=== PATIENT | female | born 1935 | race Caucasian/White ===

== ENCOUNTER 2016-08-28 21:08 | Emergency (ER) | payer OTHER ==
[~2016-08-28] VITALS: Ht 152.4 cm; Wt 66.5 kg
[~2016-08-28 21:08] MED LIST: ACET325T33 PO; ALBU8.5H3 INH; AMLO-218 PO; HYD25 PO; HYDR-3498 PO; MONT10TA21 PO; UDROBAC PO
[2016-08-28 21:25] VITALS: Ht 152.4 cm; Wt 66.5 kg
[2016-08-28] MEDS ORDERED: SODIUM CHLORIDE 0.9% 1L BAG IV* STA (21:47)
[2016-08-28] MEDS ORDERED: ACETAMINOPHEN 325 MG TAB PO STA (21:47)
[2016-08-28 23:01] LABS: ADD SCAN DIFF NO
[2016-08-28 23:04] LABS: BASOPHILS % 0.3 % (0.0-2.0); EOSINOPHILS # 0.2 10^3/ul (0.0-0.5); EOSINOPHILS % 1.9 % (0.0-7.0); HEMATOCRIT 42.1 % (37.0-47.0); HEMOGLOBIN 13.8 g/dl (12.0-16.0); LYMPHOCYTES # 1.9 10^3/ul (0.8-2.9); LYMPHOCYTES % 17.9 % (15.0-51.0); MEAN CORPUSCULAR HGB CONC 32.8 g/dl (32.0-37.0); MEAN CORPUSCULAR VOLUME 88.4 fl (82.0-101.0); MEAN PLATELET VOLUME 9.8 fl (7.4-10.4); MONOCYTE # 1.3 10^3/ul (0.3-0.9); MONOCYTES % 12.3 % (0.0-11.0); NEUTROPHIL # 7.1 10^3/ul (1.6-7.5); NEUTROPHILS % 67.3 % (39.0-77.0); PLATELET COUNT 313 10^3/UL (140-415); RED BLOOD COUNT 4.76 10^6/ul (4.20-5.40); RED CELL DISTRIBUTION WIDTH 13.2 % (11.5-14.5); WHITE BLOOD COUNT 10.5 10^3/ul (4.8-10.8)
[2016-08-28 23:08] LABS: ADD UMIC YES; URINE BILIRUBIN (Dip) NEGATIVE (NEGATIVE); URINE BLOOD (Dip) TRACE (NEGATIVE); URINE COLOR LT. YELLOW (YELLOW); URINE GLUCOSE (Dip) NEGATIVE (NEGATIVE); URINE KETONES (Dip) NEGATIVE (NEGATIVE); URINE LEUKOCYTE ESTERASE (Dip) 1+ (NEGATIVE); URINE NITRITE (Dip) POSITIVE (NEGATIVE); URINE TOTAL PROTEIN (Dip) NEGATIVE (NEGATIVE); URINE UROBILINOGEN (Dip) 0.2 E.U./dL (0.1-1.0)
[2016-08-28 23:13] LABS: INR 1.04; PROTIME 13.6 Sec (12.2-14.2); PT RATIO 1.1
[2016-08-28 23:14] LABS: PARTIAL THROMBOPLASTIN TIME 29.9 Sec (25.0-35.0)
--- NOTE | 2016-08-28 23:15 | RADRPT ---
PROCEDURE: XR Chest. CLINICAL INDICATION: Possible sepsis. TECHNIQUE: Single frontal view of the chest was obtained COMPARISON: Chest dated 01/01/2016. FINDINGS: Cardiomegaly and tortuous thoracic aorta. Left lung base atelectasis versus airspace disease. The right lung remains clear. Small left pleural effusion is likely present There is no pneumothorax. IMPRESSION: 1. Left lung base atelectasis versus airspace disease, with small left pleural effusion. 2. Findings suggest left lung base pneumonia. RPTAT: [facility] Physician Stevenson Date Time Electronically viewed and signed by Physician Stevenson on 08/28/2016 23:15 RS/
[2016-08-28 23:23] LABS: ALBUMIN 4.5 g/dl (3.3-4.9); BACTERIA,URINE MANY; CHLORIDE 96 mmol/L (97-110); SODIUM 136 mmol/L (135-144); SQUAMOUS EPITHELIAL CELL,UR FEW; URINE RBCS 0-2 /HPF (0)
[2016-08-28 23:24] LABS: POTASSIUM 3.2 mmol/L (3.5-5.1)
[2016-08-28 23:26] LABS: ALANINE AMINOTRANSFERASE 28 IU/L (13-69); ALBUMIN/GLOBULIN RATIO 1.15; ALKALINE PHOSPHATASE 111 IU/L (42-121); ANION GAP 13 (8-16); ASPARTATE AMINO TRANSFERASE 24 IU/L (15-46); BILIRUBIN,INDIRECT 0.7 mg/dl (0-1.1); BILIRUBIN,TOTAL 0.7 mg/dl (0.2-1.3); BLOOD UREA NITROGEN 11 mg/dl (7-20); CARBON DIOXIDE 30 mmol/L (21-31); CREATININE 0.68 mg/dl (0.44-1.00); GLUCOSE 115 mg/dl (70-220); TOTAL PROTEIN 8.4 g/dl (6.1-8.1)
[2016-08-28 23:27] LABS: CALCIUM 9.3 mg/dl (8.4-10.2)
[2016-08-28 23:56] LABS: TROPONIN-I < 0.012 ng/ml (0.00-0.12)
[2016-08-29] MEDS ORDERED: CEFTRIAXONE 1 GM/50 ML (PMX) 50 ML IVPB ONE (00:30)
[2016-08-29 00:54] VITALS: BP 118/67; PULSE 77; RESP 20; TEMP 98
[2016-08-29] MEDS ORDERED: CIPR500T4 PO (01:00)
--- NOTE | 2016-08-29 01:02 | ERD ---
ER Documentation Chief Complaint Date/Time DATE: 08/29/16 TIME: 01:02 Chief Complaint cough w/ fever x 3 days HPI This is a very pleasant 80-year-old female comes in with cough and fever for 3 days. Patient denies any nausea vomiting. Denies any chills. Denies any other current issues. Patient has been a little bit febrile at home. Denies any dysuria. Denies any current problems. ROS All systems reviewed and are negative except as per history of present illness. Medications Home Meds Active Scripts Ciprofloxacin Hcl* (Ciprofloxacin Hcl*) 500 Mg Tablet, 500 MG PO BID for 7 Days , TAB Prov:LEXIS SANDERSON 08/29/16 Acetaminophen* (Tylenol*) 325 Mg Tablet, 650 MG PO Q6H Y for PAIN LEVEL 1-3 OR FEVER, #30 TAB Prov:LEXIS MOORE MD 01/02/16 Amlodipine Besylate* (Norvasc*) 10 Mg Tablet, 10 MG PO DAILY, #30 TAB Prov:LEXIS MOORE MD 01/02/16 Hydrocodone Bit-Acetaminophen* ([place]*) 5-325 Mg Tab, 1 TAB PO Q6 Y for PAIN, # 20 TAB Prov:ELENA HUMPHREY 04/01/15 Guaifenesin-Codeine Phosphate* (Robitussin* AC) 5 Ml Syrup, 5 ML PO Q6H Y for COUGH for 7 Days, ML Prov:MILTON COTTO NP 10/17/14 Montelukast Sodium* (Singulair*) 10 Mg Tab, 10 MG PO HS for 30 Days Prov:MILTON COTTO NP 07/22/14 Albuterol Sulfate* (Proair HFA*) 8.5 Gm Hfa.aer.ad, 2 PUFF INH Q6 for 30 Days, INH Prov:MILTON COTTO NP 07/11/14 Reported Medications Hydrochlorothiazide* (Hydrochlorothiazide*) 25 Mg Tab, 25 MG PO DAILY, TAB 07/09/14 Allergies Allergies: Coded Allergies: aspirin (Verified Allergy, Unknown, 07/19/14) PMhx/Soc History of Surgery: Yes (C SECTION AND HYSTERECTOMY.) Anesthesia Reaction: No Hx Neurological Disorder: No Hx Respiratory Disorders: Yes (ASTHMA.) Hx Cardiac Disorders: No Hx Psychiatric Problems: No Hx Miscellaneous Medical Probl: Yes (asthma, HTN, wrist fx from fall) Hx Alcohol Use: No Hx Substance Use: No Hx Tobacco Use: No Smoking Status: Never smoker Physical Exam Vitals Vital Signs Date Time Temp Pulse Resp B/P Pulse Ox O2 Delivery O2 Flow Rate FiO2 08/29/16 00:54 98.0 77 20 118/67 96 Nasal Cannula 2.0 08/28/16 23:12 98.0 72 20 134/69 98 Nasal Cannula 2.0 08/28/16 22:03 Nasal Cannula 08/28/16 21:25 100.4 97 20 137/66 94 Physical Exam Const: [] Head: Atraumatic Eyes: Normal Conjunctiva ENT: Normal External Ears, Nose and Mouth. Neck: Full range of motion..~ No meningismus. Resp: Clear to auscultation bilaterally Cardio: Regular rate and rhythm, no murmurs Abd: Soft, non tender, non distended. Normal bowel sounds Skin: No petechiae or rashes Back: No midline or flank tenderness Ext: No cyanosis, or edema Neur: Awake and alert Psych: Normal Mood and Affect Result Diagram: 08/28/16219908/28/162199 Results 24 hrs Laboratory Tests Test 08/28/16 22:00 White Blood Count 10.510^3/ul Red Blood Count 4.7610^6/ul Hemoglobin 13.8g/dl Hematocrit 42.1% Mean Corpuscular Volume 88.4fl Mean Corpuscular Hemoglobin 29.0pg Mean Corpuscular Hemoglobin Concent 32.8g/dl Red Cell Distribution Width 13.2% Platelet Count 58974^3/UL Mean Platelet Volume 9.8fl Neutrophils % 67.3% Lymphocytes % 17.9% Monocytes % 12.3% Eosinophils % 1.9% Basophils % 0.3% Nucleated Red Blood Cells % 0.0/100WBC Neutrophils # 7.110^3/ul Lymphocytes # 1.910^3/ul Monocytes # 1.310^3/ul Eosinophils # 0.210^3/ul Basophils # 0.010^3/ul Nucleated Red Blood Cells # 0.010^3/ul Prothrombin Time 13.6Sec Prothrombin Time Ratio 1.1 INR International Normalized Ratio 1.04 Activated Partial Thromboplast Time 29.9Sec Urine Color LT. YELLOW Urine Clarity CLOUDY Urine pH 5.5 Urine Specific [place] <=1.005 Urine Ketones NEGATIVE Urine Nitrite POSITIVE Urine Bilirubin NEGATIVE Urine Urobilinogen 0.2 E.U./dL Urine Leukocyte Esterase 1+ Urine Microscopic RBC 0-2/HPF Urine Microscopic WBC 10-25/HPF Urine Squamous Epithelial Cells FEW Urine Bacteria MANY Urine Hemoglobin TRACE Urine Glucose NEGATIVE% Urine Total Protein NEGATIVE Sodium Level 136mmol/L Potassium Level 3.2mmol/L Chloride Level 96mmol/L Carbon Dioxide Level 30mmol/L Anion Gap 13 Blood Urea Nitrogen 11mg/dl Creatinine 0.68mg/dl Glucose Level 115mg/dl Lactic Acid Level 1.1mmol/L Calcium Level 9.3mg/dl Total Bilirubin 0.7mg/dl Direct Bilirubin 0.00mg/dl Indirect Bilirubin 0.7mg/dl Aspartate Amino Transf (AST/SGOT) 24IU/L Alanine Aminotransferase (ALT/SGPT) 28IU/L Alkaline Phosphatase 111IU/L Troponin I < 0.012ng/ml Total Protein 8.4g/dl Albumin 4.5g/dl Globulin 3.90g/dl Albumin/Globulin Ratio 1.15 Current Medications Medications (Trade) Dose Ordered Sig/Rosy Route PRN Reason Start Time Stop Time Status Last Admin Dose Admin Sodium Chloride (NS) 2,060 ml BOLUS OVER 2 HOURS STAT IV* 08/28/16 21:47 08/28/16 21:49 DC 08/28/16 22:41 Acetaminophen 650 mg 650 mg ONCE STAT PO 08/28/16 21:47 08/28/16 21:49 DC 08/28/16 22:41 Ceftriaxone Sodium (Rocephin) 50 ml @ 100 mls/hr ONCE ONCE IVPB 08/29/16 00:30 08/29/16 00:59 DC 08/29/16 00:35 Procedures/MDM EKG: Rate/Rhythm: Normal Sinus Rhythm QRS, ST, T-waves: No changes consistent w/ acute ischemia Impression: No evidence of ischemia or arrhythmia Chest X-ray 1V Interpreted by me: Soft Tissue: No acute abnormalities Bones: No acute abnormalities Mediastinum/Cardiac Silhouette/Lungs: [No acute abnormalities] Departure Diagnosis: Primary Impression: Fever Condition: Stable Patient Instructions: Urinary Tract Infections in Women LEXIS SANDERSON Aug 29, 2016 01:02
[2016-08-29] MEDS ORDERED: ALBU18HF INHALATION (01:03)
[2016-08-29] MEDS ORDERED: AZIT250T94 PO (01:03)
[2016-08-29] MEDS ORDERED: BENZONATATE 100 MG CAP PO ONE (01:30)
[2016-08-30] MEDS ORDERED: BENA40TA41 PO (18:06)
[2016-08-30] MEDS ORDERED: METO-448 PO (18:07)
[2016-08-30] MEDS ORDERED: DOCU100C26 PO (18:07)
[2016-08-30] MEDS ORDERED: AZIT250T6 PO (18:08)
== END 2016-08-29 01:31 | disposition home or self-care (01) ==
LOC: E/R 21:08
DX: R50.9 Fever, unspecified (principal); I10 Essential (primary) hypertension; J45.909 Unspecified asthma, uncomplicated
CPT/HCPCS: 36415; 71010; 80053; 81001; 81003; 83605; 84484; 85025; 85610; 85730; 87040; 87086; 93005; 96374; J0696; J7030; Z7502; Z7610

== ENCOUNTER 2016-08-30 15:05 | Inpatient (IN) | payer OTHER ==
[~2016-08-30] VITALS: Ht 157.5 cm; Wt 65.4 kg
[~2016-08-30 15:05] MED LIST changes: +ALBU18HF INHALATION; +AZIT250T94 PO; +CIPR500T4 PO
[2016-08-30] MEDS ORDERED: ALBUTEROL 0.5% (NEB) 2.5 MG/0.5 ML AMP INH STA (17:45)
[2016-08-30] MEDS ORDERED: SOD CHLORIDE 0.9% 500 ML IV STA (17:45)
[2016-08-30] MEDS ORDERED: METHYLPREDNISOLONE 125 MG INJ IV STA (17:45)
[2016-08-30] MEDS ORDERED: BENA40TA41 PO (18:06)
[2016-08-30] MEDS ORDERED: METO-448 PO (18:07)
[2016-08-30] MEDS ORDERED: DOCU100C26 PO (18:07)
[2016-08-30] MEDS ORDERED: AZIT250T6 PO (18:08)
--- NOTE | 2016-08-30 18:54 | RADRPT ---
PROCEDURE: XR Chest. CLINICAL INDICATION: Abdominal Pain TECHNIQUE: Portable single view of the chest COMPARISON: 08/28/2016 FINDINGS: The heart size remains within normal limits. The aorta is ectatic and tortuous, unchanged. Increas ed interstitial markings particularly at the lung bases again seen but no definite acute infiltrate, pleural effusion, or overt congestive heart failure. Mild degenerative change of the shoulders. IMPRESSION: No significant interval change. Slightly increased bibasilar interstitial markings. RPTAT: [facility] Opal Zavala, Physician Date Time Electronically viewed and signed by Opal Zavala, Physician on 08/30/2016 18:54 LE/
[2016-08-30 19:38] LABS: ADD SCAN DIFF NO
[2016-08-30 19:41] LABS: BASOPHILS % 0.3 % (0.0-2.0); EOSINOPHILS # 0.1 10^3/ul (0.0-0.5); EOSINOPHILS % 1.6 % (0.0-7.0); HEMATOCRIT 36.7 % (37.0-47.0); HEMOGLOBIN 12.4 g/dl (12.0-16.0); MEAN CORPUSCULAR HEMOGLOBIN 29.7 pg (29.0-33.0); MEAN CORPUSCULAR HGB CONC 33.8 g/dl (32.0-37.0); MEAN CORPUSCULAR VOLUME 87.8 fl (82.0-101.0); MEAN PLATELET VOLUME 9.1 fl (7.4-10.4); MONOCYTE # 0.6 10^3/ul (0.3-0.9); MONOCYTES % 8.2 % (0.0-11.0); NEUTROPHIL # 5.7 10^3/ul (1.6-7.5); NEUTROPHILS % 76.4 % (39.0-77.0); PLATELET COUNT 288 10^3/UL (140-415); RED BLOOD COUNT 4.18 10^6/ul (4.20-5.40); WHITE BLOOD COUNT 7.5 10^3/ul (4.8-10.8)
[2016-08-30 19:58] LABS: ALBUMIN 4.1 g/dl (3.3-4.9)
[2016-08-30 19:59] LABS: CHLORIDE 100 mmol/L (97-110); POTASSIUM 3.3 mmol/L (3.5-5.1); SODIUM 139 mmol/L (135-144)
[2016-08-30 20:01] LABS: ANION GAP 13 (8-16); ASPARTATE AMINO TRANSFERASE 30 IU/L (15-46); BILIRUBIN,INDIRECT 0.4 mg/dl (0-1.1); BILIRUBIN,TOTAL 0.4 mg/dl (0.2-1.3); CARBON DIOXIDE 29 mmol/L (21-31)
[2016-08-30 20:02] LABS: ALANINE AMINOTRANSFERASE 32 IU/L (13-69); ALKALINE PHOSPHATASE 103 IU/L (42-121); BLOOD UREA NITROGEN 13 mg/dl (7-20); GLUCOSE 129 mg/dl (70-220); TOTAL PROTEIN 7.5 g/dl (6.1-8.1)
[2016-08-30 20:14] LABS: TROPONIN-I < 0.010 ng/ml (0.00-0.12)
--- NOTE | 2016-08-30 20:26 | ERA ---
ER Documentation Chief Complaint Date/Time DATE: 08/30/16 TIME: 20:21 Chief Complaint HERE ON 08/28, SAME COUGH,BODY ACHES. SOB HPI 80-year-old woman brought in by family member for continued cough and shortness of breath. She does have a history of asthma and hypertension and states she has been coughing for the last 3 or 4 days. She was seen and evaluated last night a chest x-ray was unremarkable and she was treated with ceftriaxone for possible bronchitis and discharged with a prescription for ciprofloxacin which she states she has been using without relief. She denies calf or leg swelling, no chest pain, no vomiting or diarrhea, no headache or blurry vision, no complaints of dysuria, no recent travel or sick contacts. ROS All systems reviewed and are negative except as per history of present illness. Medications Home Meds Active Scripts Albuterol Sulfate* (Ventolin HFA*) 18 Gm Hfa.aer.ad, 2 PUFF INHALATION Q4H, #1 INHALER Prov:LEXIS SANDERSON 08/29/16 Ciprofloxacin Hcl* (Ciprofloxacin Hcl*) 500 Mg Tablet, 500 MG PO BID for 7 Days , TAB Prov:LEXIS SANDERSON 08/29/16 Amlodipine Besylate* (Norvasc*) 10 Mg Tablet, 10 MG PO DAILY, #30 TAB Prov:LEXIS MOORE MD 01/02/16 Montelukast Sodium* (Singulair*) 10 Mg Tab, 10 MG PO HS for 30 Days Prov:MILTON COTTO NP 07/22/14 Reported Medications Azithromycin* (Azithromycin*) 250 Mg Tablet, 250 MG PO QAM, #4 TAB 08/30/16 Docusate Sodium* (Doc-Q-Lace*) 100 Mg Capsule, 100 MG PO BID Y for CONSTIPATION , CAP 08/30/16 Metoprolol Tartrate* (Lopressor*) 25 Mg Tab, 25 MG PO BID, #60 TAB 08/30/16 Benazepril Hcl* (Benazepril Hcl*) 40 Mg Tablet, 40 MG PO DAILY, #30 TAB 08/30/16 Hydrochlorothiazide* (Hydrochlorothiazide*) 25 Mg Tab, 25 MG PO DAILY, TAB 07/09/14 Discontinued Scripts Azithromycin* (Zithromax*) 250 Mg Tablet, 250 MG PO .IRE[place] DIRECTED, #6 TAB TAKE 500 MG (2 TABS) THE FIRST DAY THEN 250 MG (1 TAB) DAYS 2-5 Prov:LEXIS SANDERSON 08/29/16 Acetaminophen* (Tylenol*) 325 Mg Tablet, 650 MG PO Q6H Y for PAIN LEVEL 1-3 OR FEVER, #30 TAB Prov:LEXIS MOORE MD 01/02/16 Hydrocodone Bit-Acetaminophen* ([place]*) 5-325 Mg Tab, 1 TAB PO Q6 Y for PAIN, # 20 TAB Prov:ELENA HUMPHREY 04/01/15 Guaifenesin-Codeine Phosphate* (Robitussin* AC) 5 Ml Syrup, 5 ML PO Q6H Y for COUGH for 7 Days, ML Prov:MILTON COTTO NP 10/17/14 Albuterol Sulfate* (Proair HFA*) 8.5 Gm Hfa.aer.ad, 2 PUFF INH Q6 for 30 Days, INH Prov:MILTON COTTO DECONTAMINATOR 07/11/14 Allergies Allergies: Coded Allergies: aspirin (Verified Allergy, Unknown, 08/30/16) PMhx/Soc Asthma, hypertension History of Surgery: Yes (C SECTION AND HYSTERECTOMY.) Anesthesia Reaction: No Hx Neurological Disorder: No Hx Respiratory Disorders: Yes (ASTHMA.) Hx Cardiac Disorders: No Hx Psychiatric Problems: No Hx Miscellaneous Medical Probl: Yes (asthma, HTN, wrist fx from fall) Hx Alcohol Use: No Hx Substance Use: No Hx Tobacco Use: No Smoking Status: Never smoker FmHx Family History: No diabetes Physical Exam Vitals Vital Signs Date Time Temp Pulse Resp B/P Pulse Ox O2 Delivery O2 Flow Rate FiO2 08/30/16 19:56 2.0 08/30/16 19:55 78 22 97 Nasal Cannula 2.0 08/30/16 15:06 98.7 89 18 115/59 91 Physical Exam GENERAL: Well-developed, well-nourished, dyspneic, afebrile HEENT: Moist mucous membranes, pink conjunctiva, no cervical spine tenderness or step-off deformities, no goiter, no jaundice or icterus, extraocular movements intact without pain. No submandibular induration, and no pharyngeal erythema NEURO: Alert and oriented 3, cranial nerves II through XII intact bilaterally, pupils equal round reactive to light, no focal deficits or facial asymmetry, sensation intact distally Strength 5/5 in upper and lower extremities bilaterally CARDIAC: Regular rate and rhythm, no murmurs rubs or gallops LUNGS: Dense wheezes bilaterally, no stridor or crackles ABDOMEN: Soft nontender, no guarding, no rigidity, no rebound, no psoas sign no obturator sign. Normoactive bowel sounds SKIN: Warm and dry to touch, no abrasions, contusions, or hematomas, no lacerations, no ecchymosis, no target lesions, and without ulcers EXTREMITIES: No clubbing cyanosis or edema, calves are bilaterally symmetrical, no Homans sign, no popliteal cord sign. Distal pulses equal and bilateral PSYCH: Normal affect without agitation or irritability Result Diagram: 08/30/16192408/30/161924 Results 24 hrs Laboratory Tests Test 08/30/16 19:25 White Blood Count 7.510^3/ul Red Blood Count 4.1810^6/ul Hemoglobin 12.4g/dl Hematocrit 36.7% Mean Corpuscular Volume 87.8fl Mean Corpuscular Hemoglobin 29.7pg Mean Corpuscular Hemoglobin Concent 33.8g/dl Red Cell Distribution Width 13.0% Platelet Count 92153^3/UL Mean Platelet Volume 9.1fl Neutrophils % 76.4% Lymphocytes % 13.0% Monocytes % 8.2% Eosinophils % 1.6% Basophils % 0.3% Nucleated Red Blood Cells % 0.0/100WBC Neutrophils # 5.710^3/ul Lymphocytes # 1.010^3/ul Monocytes # 0.610^3/ul Eosinophils # 0.110^3/ul Basophils # 0.010^3/ul Nucleated Red Blood Cells # 0.010^3/ul Sodium Level 139mmol/L Potassium Level 3.3mmol/L Chloride Level 100mmol/L Carbon Dioxide Level 29mmol/L Anion Gap 13 Blood Urea Nitrogen 13mg/dl Creatinine 0.70mg/dl Glucose Level 129mg/dl Calcium Level 9.0mg/dl Total Bilirubin 0.4mg/dl Direct Bilirubin 0.00mg/dl Indirect Bilirubin 0.4mg/dl Aspartate Amino Transf (AST/SGOT) 30IU/L Alanine Aminotransferase (ALT/SGPT) 32IU/L Alkaline Phosphatase 103IU/L Troponin I < 0.010ng/ml Total Protein 7.5g/dl Albumin 4.1g/dl Globulin 3.40g/dl Albumin/Globulin Ratio 1.20 Lipase 66U/L Current Medications Medications (Trade) Dose Ordered Sig/Rosy Route PRN Reason Start Time Stop Time Status Last Admin Dose Admin Sodium Chloride (NS) 500 ml @ 500 mls/hr Q1H STAT IV 08/30/16 17:45 08/30/16 18:44 DC 08/30/16 18:11 Albuterol (Proventil 0.5% (Neb)) 10 mg ONCE STAT INH 08/30/16 17:45 08/30/16 17:47 DC 08/30/16 19:55 Methylprednisolone Sodium Succinate (Solu-Medrol) 125 mg ONCE STAT IV 08/30/16 17:45 08/30/16 17:47 DC 08/30/16 18:10 Procedures/MDM IV line was established patient was placed on surveillance monitor rhythm strip revealed a sinus rhythm at about 80 bpm with upright P and T waves. Patient was afebrile. I administered 500 cc normal saline intravenously, albuterol 10 mg via nebulizer , ipratropium 1 mg via nebulizer, methylprednisolone 125 mg IV. CBC was unremarkable, electrolytes revealed mild hypokalemia 3.3 consistent with her albuterol treatment, liver function tests are normal, troponin was negative. Urine analysis is also been ordered results are pending I will follow -up. Despite over an hour of albuterol treatment patient has continued dense wheezing and tachypnea, I do not suspect pulmonary embolism. Patient will be admitted to [facility] for continued bronchodilator therapy secondary to severe asthma exacerbation. Departure Diagnosis: Primary Impression: Asthma exacerbation Condition: MARIBEL Shields MD Aug 30, 2016 20:26
[2016-08-30 21:49] LABS: ADD UMIC YES; URINE BILIRUBIN (Dip) NEGATIVE (NEGATIVE); URINE BLOOD (Dip) TRACE (NEGATIVE); URINE COLOR LT. YELLOW (YELLOW); URINE GLUCOSE (Dip) NEGATIVE (NEGATIVE); URINE KETONES (Dip) TRACE (NEGATIVE); URINE LEUKOCYTE ESTERASE (Dip) NEGATIVE (NEGATIVE); URINE NITRITE (Dip) NEGATIVE (NEGATIVE); URINE TOTAL PROTEIN (Dip) NEGATIVE (NEGATIVE); URINE UROBILINOGEN (Dip) 0.2 E.U./dL (0.1-1.0)
[2016-08-30 22:02] LABS: BACTERIA,URINE RARE; SQUAMOUS EPITHELIAL CELL,UR FEW; URINE RBCS 0-2 /HPF (0)
--- NOTE | 2016-08-30 22:08 | HP ---
Date/Time of Note Date/Time of Note DATE: 08/30/16 TIME: 22:07 Assessment/Plan VTE Prophylaxis VTE Prophylaxis Intervention: anti-embolic stocking Assessment/Plan Assessment/Plan 1) Asthma Exacerbation - Admit to Med Surg - DuoNeb QID and Albuterol neb Q 2 hours prn - ABX to prevent pneumonia, not to treat anything patient has right now. 2) History of recurrent pneumonia HPI/ROS Admit Date/Time Admit Date/Time Aug 30, 2016 at 20:21 Hx of Present Illness Patient is a 80-year-old [place]ian-speaking woman accompanied by her daughter. Patient complains of cough and shortness of breath and wheezing. She coughs so much it is it hurts her lower abdomen when she does and it makes her urinate. She has had no fevers or chills. No nausea or vomiting. She has asthma and a history of pneumonia 2 or 3 times. She is hard of hearing. She was seen yesterday for the same symptoms and she was given antibiotics but no breathing treatment. Tonight, the patient has received multiple breathing treatments and has improved both objectively and subjectively. ROS General: Admits: Denies: Fever, Chills, Poor Appetite, Generalized Body Aches Eyes: Admits: Denies: Blurry Vision, Double Vision HENT: Admits: Hard of hearing Denies: Ear Pain/Pressure, Runny/Stuffy Nose, Sore Throat Cardiovascular: Admits: Denies: Chest Pain, Palpitations, Leg Swelling Pulmonary: Admits: Cough, Wheeze, Shortness of Breath Denies: Gastrointestinal: Admits: Abdominal Pain, lower, with coughs Denies: Nausea, Vomiting, Diarrhea, Blood in Stool, Black-Colored Stool Urogenital: Admits: Incontinence with coughing Denies: Burning with Urination, Urinary Frequency, Blood in Urine Musculoskeletal: Admits: Denies: Joint Pain, Joint Swelling, Muscle Pain Neurological: Admits: Denies: Headache, Dizziness, Numbness, Tingling, Shooting Pains Integumentary: Admits: Denies: Rash, Itch PMH/Family/Social Social History Smoking Status: Never smoker Exam/Review of Systems Vital Signs Vitals Vital Signs Date Time Temp Pulse Resp B/P Pulse Ox O2 Delivery O2 Flow Rate FiO2 08/30/16 21:44 97 113/70 98 Nasal Cannula 5.0 08/30/16 19:55 22 08/30/16 15:06 98.7 Exam Exam General: Elderly [place]ian-Speaking female who is hard of hearing, but alert and pleasant, in no acute distress Eyes: Sclera White, EOMI HENT: Normocephalic/Atraumatic, External Ears/Nose Normal, Moist Mucus Membranes Neck: Supple, Trachea Midline Cardiovascular: Normal Rate, Normal Rhythm, Normal S1 and S2, No Murmur, No Extra Sounds. Radial pulses +2/4. No pedal edema. Pulmonary: Decreased airflow throughout, but no rales, rhonchi or wheezes Gastrointestinal: Normoactive Bowel Sounds, Soft, Non-Tender/Non-Distended, No Hepatosplenomegaly Appreciated, No Pulsatile Masses Urogenital: Deferred Musculoskeletal: Normal Muscle Bulk and Tone Neurological: CN II - XII Grossly Intact, Non-Focal Integumentary: Normal Moisture and Temperature, Good Turgor, No Jaundice, No Rash Lymphatic: No Cervical Lymphadenopathy Psychiatric: Appropriate Mood and Affect, Good Eye Contact Labs Result Diagram: 08/30/16192408/30/161924 Medications Medications Home Meds Active Scripts Albuterol Sulfate* (Ventolin HFA*) 18 Gm Hfa.aer.ad, 2 PUFF INHALATION Q4H, #1 INHALER Prov:LEXIS SANDERSON 08/29/16 Ciprofloxacin Hcl* (Ciprofloxacin Hcl*) 500 Mg Tablet, 500 MG PO BID for 7 Days , TAB Prov:LEXIS SANDERSON 08/29/16 Amlodipine Besylate* (Norvasc*) 10 Mg Tablet, 10 MG PO DAILY, #30 TAB Prov:LEXIS MOORE MD 01/02/16 Montelukast Sodium* (Singulair*) 10 Mg Tab, 10 MG PO HS for 30 Days Prov:MILTON COTTO NP 07/22/14 Reported Medications Azithromycin* (Azithromycin*) 250 Mg Tablet, 250 MG PO QAM, #4 TAB 08/30/16 Docusate Sodium* (Doc-Q-Lace*) 100 Mg Capsule, 100 MG PO BID Y for CONSTIPATION , CAP 08/30/16 Metoprolol Tartrate* (Lopressor*) 25 Mg Tab, 25 MG PO BID, #60 TAB 08/30/16 Benazepril Hcl* (Benazepril Hcl*) 40 Mg Tablet, 40 MG PO DAILY, #30 TAB 08/30/16 Hydrochlorothiazide* (Hydrochlorothiazide*) 25 Mg Tab, 25 MG PO DAILY, TAB 07/09/14 Discontinued Scripts Azithromycin* (Zithromax*) 250 Mg Tablet, 250 MG PO .[place] DIRECTED, #6 TAB TAKE 500 MG (2 TABS) THE FIRST DAY THEN 250 MG (1 TAB) DAYS 2-5 Prov:LEXIS SANDERSON 08/29/16 Acetaminophen* (Tylenol*) 325 Mg Tablet, 650 MG PO Q6H Y for PAIN LEVEL 1-3 OR FEVER, #30 TAB Prov:LEXIS MOORE MD 01/02/16 Hydrocodone Bit-Acetaminophen* ([place]*) 5-325 Mg Tab, 1 TAB PO Q6 Y for PAIN, # 20 TAB Prov:ELENA HUMPHREY 04/01/15 Guaifenesin-Codeine Phosphate* (Robitussin* AC) 5 Ml Syrup, 5 ML PO Q6H Y for COUGH for 7 Days, ML Prov:MILTON COTTO NP 10/17/14 Albuterol Sulfate* (Proair HFA*) 8.5 Gm Hfa.aer.ad, 2 PUFF INH Q6 for 30 Days, INH Prov:MILTON COTTO COMMERCIAL TITLE EXAMINER 07/11/14 Current Medications Medications (Trade) Dose Ordered Sig/Rosy Route PRN Reason Start Time Stop Time Status Last Admin Dose Admin Sodium Chloride (NS) 500 ml @ 500 mls/hr Q1H STAT IV 08/30/16 17:45 08/30/16 18:44 DC 08/30/16 18:11 Albuterol (Proventil 0.5% (Neb)) 10 mg ONCE STAT INH 08/30/16 17:45 08/30/16 17:47 DC 08/30/16 19:55 Methylprednisolone Sodium Succinate (Solu-Medrol) 125 mg ONCE STAT IV 08/30/16 17:45 08/30/16 17:47 DC 08/30/16 18:10 Procedures Procedures Laboratory Tests Test 08/30/16 19:25 White Blood Count 7.510^3/ul Red Blood Count 4.1810^6/ul Hemoglobin 12.4g/dl Hematocrit 36.7% Mean Corpuscular Volume 87.8fl Mean Corpuscular Hemoglobin 29.7pg Mean Corpuscular Hemoglobin Concent 33.8g/dl Red Cell Distribution Width 13.0% Platelet Count 79050^3/UL Mean Platelet Volume 9.1fl Neutrophils % 76.4% Lymphocytes % 13.0% Monocytes % 8.2% Eosinophils % 1.6% Basophils % 0.3% Nucleated Red Blood Cells % 0.0/100WBC Neutrophils # 5.710^3/ul Lymphocytes # 1.010^3/ul Monocytes # 0.610^3/ul Eosinophils # 0.110^3/ul Basophils # 0.010^3/ul Nucleated Red Blood Cells # 0.010^3/ul Sodium Level 139mmol/L Potassium Level 3.3mmol/L Chloride Level 100mmol/L Carbon Dioxide Level 29mmol/L Anion Gap 13 Blood Urea Nitrogen 13mg/dl Creatinine 0.70mg/dl Glucose Level 129mg/dl Calcium Level 9.0mg/dl Total Bilirubin 0.4mg/dl Direct Bilirubin 0.00mg/dl Indirect Bilirubin 0.4mg/dl Aspartate Amino Transf (AST/SGOT) 30IU/L Alanine Aminotransferase (ALT/SGPT) 32IU/L Alkaline Phosphatase 103IU/L Troponin I < 0.010ng/ml Total Protein 7.5g/dl Albumin 4.1g/dl Globulin 3.40g/dl Albumin/Globulin Ratio 1.20 Lipase 66U/L Procedures/MDM in the ER IV line was established patient was placed on engineer soils rhythm strip revealed a sinus rhythm at about 80 bpm with upright P and T waves. Patient was afebrile. I administered 500 cc normal saline intravenously, albuterol 10 mg via nebulizer , ipratropium 1 mg via nebulizer, methylprednisolone 125 mg IV. CBC was unremarkable, electrolytes revealed mild hypokalemia 3.3 consistent with her albuterol treatment, liver function tests are normal, troponin was negative. Urine analysis is also been ordered results are pending I will follow -up. Despite over an hour of albuterol treatment patient has continued dense wheezing and tachypnea, I do not suspect pulmonary embolism. Patient will be admitted to [facility] for continued bronchodilator therapy secondary to severe asthma exacerbation. ARNAV PAYTON DO Aug 30, 2016 22:08
[2016-08-30] MEDS ORDERED: HYDROCODONE/APAP (5/325) TAB PO PRN ×2 (22:30)
[2016-08-30] MEDS ORDERED: NACL 0.9% 3 ML SYG IV SCH (22:30)
[2016-08-30] MEDS ORDERED: ALBUTEROL 0.083% (NEB) 2.5 MG/3 ML AMP NEB PRN (22:30)
[2016-08-30] MEDS ORDERED: DOCUSATE SODIUM 100 MG CAP PO PRN (22:30)
[2016-08-30] MEDS ORDERED: ACETAMINOPHEN 325 MG TAB PO PRN (22:30)
[2016-08-30 22:36] VITALS: Ht 157.5 cm; Wt 65.4 kg
[2016-08-30 22:53] VITALS: BP 123/62
[2016-08-30] MEDS: METOPROLOL 25 MG TAB PO SCH (23:45)
[2016-08-31 05:19] LABS: ADD SCAN DIFF NO
[2016-08-31 05:24] LABS: ABNORMAL IP MESSAGE 1; BASOPHILS % 0.1 % (0.0-2.0); HEMATOCRIT 37.5 % (37.0-47.0); HEMOGLOBIN 12.4 g/dl (12.0-16.0); LYMPHOCYTES # 0.6 10^3/ul (0.8-2.9); LYMPHOCYTES % 8.7 % (15.0-51.0); MEAN CORPUSCULAR HEMOGLOBIN 29.2 pg (29.0-33.0); MEAN CORPUSCULAR HGB CONC 33.1 g/dl (32.0-37.0); MEAN CORPUSCULAR VOLUME 88.4 fl (82.0-101.0); MEAN PLATELET VOLUME 9.1 fl (7.4-10.4); MONOCYTE # 0.1 10^3/ul (0.3-0.9); MONOCYTES % 0.9 % (0.0-11.0); NEUTROPHIL # 6.1 10^3/ul (1.6-7.5); NEUTROPHILS % 89.7 % (39.0-77.0); PLATELET COUNT 298 10^3/UL (140-415); RED BLOOD COUNT 4.24 10^6/ul (4.20-5.40); WHITE BLOOD COUNT 6.8 10^3/ul (4.8-10.8)
[2016-08-31 06:05] LABS: POTASSIUM 3.2 mmol/L (3.5-5.1)
[2016-08-31 06:07] LABS: CREATININE 0.66 mg/dl (0.44-1.00)
[2016-08-31 06:08] LABS: CALCIUM 9.1 mg/dl (8.4-10.2)
[2016-08-31 08:11] VITALS: BP 127/74; RESP 20
[2016-08-31] MEDS: METOPROLOL 25 MG TAB PO SCH ×2 (08:15→20:37)
[2016-08-31] MEDS: AMLODIPINE 10 MG TAB PO SCH (08:15)
[2016-08-31] MEDS: HYDROCHLOROTHIAZIDE 25 MG TAB PO SCH (08:15)
[2016-08-31] MEDS: AZITHROMYCIN 250 MG TAB PO SCH (08:15)
[2016-08-31] MEDS: BENAZEPRIL 40 MG TAB PO SCH (08:15)
[2016-08-31] MEDS: FAMOTIDINE 20 MG TAB PO SCH (08:15)
[2016-08-31] MEDS: ALBUTEROL/IPRATROPIUM (NEB) 3 ML AMP HHN SCH ×4 (08:19→20:42)
[2016-08-31] MEDS ORDERED: POTASSIUM CHLORIDE (SR) 20 MEQ TAB PO STA (14:45)
--- NOTE | 2016-08-31 16:29 | PN ---
Date/Time of Note Date/Time of Note DATE: 08/31/16 TIME: 16:24 Assessment/Plan VTE Prophylaxis VTE Prophylaxis Intervention: heparin Lines/Catheters IV [facility]ter Type [facility]from [facility]): Saline Lock Urinary Cath still in place: No Assessment/Plan Assessment/Plan 1. COPD exacerbation, neb/steroid, antibiotics 2. Hypertension, controlled 3. DVT prophylaxis: heparin Exam/Review of Systems Vital Signs Vitals Vital Signs Date Time Temp Pulse Resp B/P Pulse Ox O2 Delivery O2 Flow Rate FiO2 08/31/16 13:12 63 20 96 Nasal Cannula 2.0 08/31/16 08:11 98.3 127/74 Intake and Output 08/30/16 08/30/16 08/31/16 15:00 23:00 07:00 Intake Total 500 ml 200 ml Balance 500 ml 200 ml Results Result Diagram: 08/31/16 0515 08/31/16 0515 Results 24 hrs Laboratory Tests Test 08/30/16 19:25 08/30/16 21:34 08/31/16 05:15 White Blood Count 7.5 # 6.8 Red Blood Count 4.18 L 4.24 Hemoglobin 12.4 12.4 Hematocrit 36.7 L 37.5 Mean Corpuscular Volume 87.8 88.4 Mean Corpuscular Hemoglobin 29.7 29.2 Mean Corpuscular Hemoglobin Concent 33.8 33.1 Red Cell Distribution Width 13.0 13.0 Platelet Count 288 298 Mean Platelet Volume 9.1 9.1 Neutrophils % 76.4 89.7 H Lymphocytes % 13.0 L 8.7 L Monocytes % 8.2 0.9 Eosinophils % 1.6 0.0 Basophils % 0.3 0.1 Nucleated Red Blood Cells % 0.0 0.0 Neutrophils # 5.7 6.1 Lymphocytes # 1.0 0.6 L Monocytes # 0.6 0.1 L Eosinophils # 0.1 0.0 Basophils # 0.0 0.0 Nucleated Red Blood Cells # 0.0 0.0 Sodium Level 139 141 Potassium Level 3.3 L 3.2 L Chloride Level 100 98 Carbon Dioxide Level 29 29 Anion Gap 13 17 H Blood Urea Nitrogen 13 15 Creatinine 0.70 0.66 Glucose Level 129 181 Calcium Level 9.0 9.1 Total Bilirubin 0.4 Direct Bilirubin 0.00 Indirect Bilirubin 0.4 Aspartate Amino Transf (AST/SGOT) 30 Alanine Aminotransferase (ALT/SGPT) 32 Alkaline Phosphatase 103 Troponin I < 0.010 Total Protein 7.5 Albumin 4.1 Globulin 3.40 H Albumin/Globulin Ratio 1.20 Lipase 66 Urine Color LT. YELLOW Urine Clarity CLEAR Urine pH 5.0 Urine Specific [place] 1.010 Urine Ketones TRACE H Urine Nitrite NEGATIVE Urine Bilirubin NEGATIVE Urine Urobilinogen 0.2 E.U./dL Urine Leukocyte Esterase NEGATIVE Urine Microscopic RBC 0-2 Urine Microscopic WBC 0-2 Urine Squamous Epithelial Cells FEW Urine Bacteria RARE Urine Hemoglobin TRACE Urine Glucose NEGATIVE Urine Total Protein NEGATIVE Medications Medications Current Medications Acetaminophen (Tylenol Tab) 650 mg Q6H PRN PO PAIN LEVEL 1-3 OR FEVER; Start at 22:30 Acetaminophen/ Hydrocodone Bitart ([place] (5/325)) 1 tab Q6H PRN PO MODERATE PAIN LEVEL 4-6; Start 08/30/16 at 22:30 Acetaminophen/ Hydrocodone Bitart ([place] (5/325)) 2 tab Q6H PRN PO SEVERE PAIN LEVEL 7-10; Start 08/30/16 at 22:30 Famotidine (Pepcid) 20 mg DAILY PO Last administered on 08/31/16 08:15; Admin Dose 20 MG; Start 08/31/16 at 09:00 Amlodipine Besylate (Norvasc) 10 mg DAILY PO Last administered on 08/31/16 08: 15; Admin Dose 10 MG; Start 08/31/16 at 09:00 Azithromycin (Zithromax) 250 mg QAM PO Last administered on 08/31/16 08:15; Admin Dose 250 MG; Start 08/31/16 at 09:00 Benazepril HCl (Lotensin) 40 mg DAILY PO Last administered on 08/31/16 08:15; Admin Dose 40 MG; Start 08/31/16 at 09:00 Docusate Sodium (Colace) 100 mg BID PRN PO CONSTIPATION; Start 08/30/16 at 22:30 Hydrochlorothiazide (Hydrochlorothiazide) 25 mg DAILY PO Last administered on 08:15; Admin Dose 25 MG; Start 08/31/16 at 09:00 Metoprolol Tartrate (Lopressor) 25 mg BID PO Last administered on 08/31/16 08: 15; Admin Dose 25 MG; Start 08/30/16 at 22:30 Montelukast Sodium (Singulair) 10 mg HS PO ; Start 08/31/16 at 21:00 BOWEN BULLARD MD Aug 31, 2016 16:29
[2016-08-31] MEDS: METHYLPREDNISOLONE 40 MG INJ IV SCH (18:11)
[2016-08-31] MEDS: MONTELUKAST 10 MG TAB PO SCH (20:36)
[2016-08-31] MEDS: HEPARIN 5,000 UNIT/0.5 ML VIAL SC SCH (20:39)
[2016-08-31 21:21] VITALS: BP 112/57; RESP 16
[2016-09-01] MEDS: METHYLPREDNISOLONE 40 MG INJ IV SCH ×5 (00:01→23:24)
[2016-09-01 08:00] VITALS: BP 111/57; RESP 20
[2016-09-01 08:00] LABS: POTASSIUM 3.6 mmol/L (3.5-5.1)
[2016-09-01 08:02] LABS: CREATININE 0.73 mg/dl (0.44-1.00)
[2016-09-01 08:03] LABS: CALCIUM 9.1 mg/dl (8.4-10.2)
[2016-09-01] MEDS: ALBUTEROL/IPRATROPIUM (NEB) 3 ML AMP HHN SCH ×4 (09:05→20:35)
[2016-09-01] MEDS: AZITHROMYCIN 250 MG TAB PO SCH (09:45)
[2016-09-01] MEDS: AMLODIPINE 10 MG TAB PO SCH (09:45)
[2016-09-01] MEDS: HYDROCHLOROTHIAZIDE 25 MG TAB PO SCH (09:45)
[2016-09-01] MEDS: FAMOTIDINE 20 MG TAB PO SCH (09:46)
[2016-09-01] MEDS: BENAZEPRIL 40 MG TAB PO SCH (09:46)
[2016-09-01] MEDS: HEPARIN 5,000 UNIT/0.5 ML VIAL SC SCH ×2 (09:48→20:53)
[2016-09-01] MEDS: METOPROLOL 25 MG TAB PO SCH ×2 (09:51→20:53)
--- NOTE | 2016-09-01 15:39 | PN ---
Date/Time of Note Date/Time of Note DATE: 09/01/16 TIME: 15:38 Assessment/Plan VTE Prophylaxis VTE Prophylaxis Intervention: LMWH Lines/Catheters IV [facility] Type (from [facility] Saline Lock Urinary Cath still in place: No Assessment/Plan Assessment/Plan 1. COPD exacerbation, improving, continue neb/steroid, antibiotics 2. Hypertension, controlled 3. DVT prophylaxis: heparin Subjective 24 Hr Interval Summary Free Text/Dictation better with less SOB Exam/Review of Systems Vital Signs Vitals Vital Signs Date Time Temp Pulse Resp B/P Pulse Ox O2 Delivery O2 Flow Rate FiO2 09/01/16 09:05 2.0 09/01/16 09:05 74 20 98 Nasal Cannula 09/01/16 08:00 98.2 111/57 Intake and Output 08/31/16 08/31/16 09/01/16 15:00 23:00 07:00 Intake Total 1080 ml 250 ml Balance 1080 ml 250 ml Exam Constitutional: alert, oriented, well developed Psych: nl mood/affect, no complaints Head: atraumatic, normocephalic Eyes: EOMI, PERRL, nl conjunctiva, nl lids ENMT: nl external ears & nose, nl lips & teeth, nl nasal mucosa & septum Neck: non-tender, supple Respiratory: diminished breath sounds, No congested cough, No crackles/rales, No intercostal retraction, No labored breathing, No other, No respirations, No tactile fremitus, No wheezing Cardiovascular: nl pulses, regular rate and rhythm, No S3, No S4, No bruits, No diastolic murmur, No edema, No gallop, No irregular rhythm, No jugular venous distention (JVD), No murmurs/extra sounds, No other, No rub, No systolic murmur Gastrointestinal: nl liver, spleen, non-tender, soft, No ascites, No bowel sounds, No distended, No firm, No hepatomegaly, No mass , No other, No rebound or guarding, No splenomegaly, No surgical scars, No tender Musculoskeletal: nl extremities to inspection Extremities: normal pulses, No calf tenderness, No clubbing, No cyanosis, No edema, No other, No palpable cord, No pitting pedal edema, No tenderness Neurological: SONG WRITER II-XII intact, nl mental status, nl speech, nl strength Skin: nl turgor Lymph: nl lymph nodes Results Result Diagram: 08/31/16 0515 09/01/16 0544 Results 24 hrs Laboratory Tests Test 09/01/16 05:44 Sodium Level 140 Potassium Level 3.6 Chloride Level 99 Carbon Dioxide Level 29 Anion Gap 16 Blood Urea Nitrogen 24 H Creatinine 0.73 Glucose Level 153 Calcium Level 9.1 Medications Medications Current Medications Acetaminophen (Tylenol Tab) 650 mg Q6H PRN PO PAIN LEVEL 1-3 OR FEVER; Start at 22:30 Acetaminophen/ Hydrocodone Bitart ([place] (5/325)) 1 tab Q6H PRN PO MODERATE PAIN LEVEL 4-6; Start 08/30/16 at 22:30 Acetaminophen/ Hydrocodone Bitart ([place] (5/325)) 2 tab Q6H PRN PO SEVERE PAIN LEVEL 7-10; Start 08/30/16 at 22:30 Famotidine (Pepcid) 20 mg DAILY PO Last administered on 09/01/16 09:46; Admin Dose 20 MG; Start 08/31/16 at 09:00 Amlodipine Besylate (Norvasc) 10 mg DAILY PO Last administered on 09/01/16 09: 45; Admin Dose 10 MG; Start 08/31/16 at 09:00 Azithromycin (Zithromax) 250 mg QAM PO Last administered on 09/01/16 09:45; Admin Dose 250 MG; Start 08/31/16 at 09:00 Benazepril HCl (Lotensin) 40 mg DAILY PO Last administered on 09/01/16 09:46; Admin Dose 40 MG; Start 08/31/16 at 09:00 Docusate Sodium (Colace) 100 mg BID PRN PO CONSTIPATION; Start 08/30/16 at 22:30 Hydrochlorothiazide (Hydrochlorothiazide) 25 mg DAILY PO Last administered on 09:45; Admin Dose 25 MG; Start 08/31/16 at 09:00 Metoprolol Tartrate (Lopressor) 25 mg BID PO Last administered on 09/01/16 09: 51; Admin Dose 25 MG; Start 08/30/16 at 22:30 Montelukast Sodium (Singulair) 10 mg HS PO Last administered on 08/31/16 20:36 ; Admin Dose 10 MG; Start 08/31/16 at 21:00 Methylprednisolone Sodium Succinate (Solu-Medrol) 40 mg Q6 IV Last administered on 09/01/16 12:40; Admin Dose 40 MG; Start 08/31/16 at 18:00 Heparin Sodium (Porcine) (Heparin (5000 Units/0.5 ml)) 5,000 unit BID SC Last administered on 09/01/16 09:48; Admin Dose 5,000 UNIT; Start 08/31/16 at 21:00 BOWEN BULALRD MD Sep 01, 2016 15:39
[2016-09-01] MEDS: MONTELUKAST 10 MG TAB PO SCH (20:52)
[2016-09-02] MEDS: METHYLPREDNISOLONE 40 MG INJ IV SCH ×3 (05:20→18:00)
[2016-09-02 08:06] VITALS: BP 125/60; RESP 17
[2016-09-02] MEDS: ALBUTEROL/IPRATROPIUM (NEB) 3 ML AMP HHN SCH ×3 (08:30→16:37)
[2016-09-02] MEDS: HEPARIN 5,000 UNIT/0.5 ML VIAL SC SCH (08:56)
[2016-09-02] MEDS: HYDROCHLOROTHIAZIDE 25 MG TAB PO SCH (08:58)
[2016-09-02] MEDS: FAMOTIDINE 20 MG TAB PO SCH (08:58)
[2016-09-02] MEDS: AZITHROMYCIN 250 MG TAB PO SCH (08:58)
[2016-09-02] MEDS: AMLODIPINE 10 MG TAB PO SCH (08:59)
[2016-09-02] MEDS: BENAZEPRIL 40 MG TAB PO SCH (08:59)
[2016-09-02] MEDS: METOPROLOL 25 MG TAB PO SCH (11:22)
[2016-09-02 11:28] VITALS: BP 108/73; PULSE 104
[2016-09-02 15:21] VITALS: PULSE 80
[2016-09-02] MEDS ORDERED: LEVO500T72 PO (16:35)
[2016-09-02] MEDS ORDERED: PRED20TA PO (16:35)
--- NOTE | 2016-09-02 16:39 | DS ---
Date/Time of Note Date/Time of Note DATE: 09/02/16 TIME: 16:37 Discharge Summary Admission/Discharge Info Admit Date/Time Aug 30, 2016 at 20:21 Discharge Date/Time Final Diagnosis 1. COPD exacerbation, improved, follow up with PCP 2. Hypertension, controlled Patient Condition: Stable Hx of Present Illness Patient is a 80-year-old Vietnamese-speaking woman accompanied by her daughter. Patient complains of cough and shortness of breath and wheezing. She coughs so much it is it hurts her lower abdomen when she does and it makes her urinate. She has had no fevers or chills. No nausea or vomiting. She has asthma and a history of pneumonia 2 or 3 times. She is hard of hearing. She was seen yesterday for the same symptoms and she was given antibiotics but no breathing treatment. Tonight, the patient has received multiple breathing treatments and has improved both objectively and subjectively. Hospital Course Patient has low breath sounds all over the lungs but CXR no infiltrates. Patient is treated with nebulizer, steroid, and antibiotics for COPD exacerbation. Symptoms improved. Home Meds Active Scripts Prednisone* (Prednisone*) 20 Mg Tab, 20 MG PO BID for 3 Days, TAB Prov:BOWEN BULLARD MD 09/02/16 Levofloxacin* (Levaquin*) 500 Mg Tablet, 500 MG PO DAILY for 5 Days, TAB Prov:BOWEN BULLARD MD 09/02/16 Albuterol Sulfate* (Ventolin HFA*) 18 Gm Hfa.aer.ad, 2 PUFF INHALATION Q4H, #1 INHALER Prov:LEXIS SANDERSON 08/29/16 Amlodipine Besylate* (Norvasc*) 10 Mg Tablet, 10 MG PO DAILY, #30 TAB Prov:LEXIS MOORE MD 01/02/16 Montelukast Sodium* (Singulair*) 10 Mg Tab, 10 MG PO HS for 30 Days Prov:MILTON COTTO NP 07/22/14 Reported Medications Docusate Sodium* (Doc-Q-Lace*) 100 Mg Capsule, 100 MG PO BID Y for CONSTIPATION , CAP 08/30/16 Metoprolol Tartrate* (Lopressor*) 25 Mg Tab, 25 MG PO BID, #60 TAB 08/30/16 Benazepril Hcl* (Benazepril Hcl*) 40 Mg Tablet, 40 MG PO DAILY, #30 TAB 08/30/16 Hydrochlorothiazide* (Hydrochlorothiazide*) 25 Mg Tab, 25 MG PO DAILY, TAB 07/09/14 Discontinued Reported Medications Azithromycin* (Azithromycin*) 250 Mg Tablet, 250 MG PO QAM, #4 TAB 08/30/16 Discontinued Scripts Ciprofloxacin Hcl* (Ciprofloxacin Hcl*) 500 Mg Tablet, 500 MG PO BID for 7 Days , TAB Prov:LEXIS SANDERSON 08/29/16 Azithromycin* (Zithromax*) 250 Mg Tablet, 250 MG PO .ZPACK DIRECTED, #6 TAB TAKE 500 MG (2 TABS) THE FIRST DAY THEN 250 MG (1 TAB) DAYS 2-5 Prov:LEXIS SANDERSON 08/29/16 Acetaminophen* (Tylenol*) 325 Mg Tablet, 650 MG PO Q6H Y for PAIN LEVEL 1-3 OR FEVER, #30 TAB Prov:LEXIS MOORE MD 01/02/16 Hydrocodone Bit-Acetaminophen* ([place]*) 5-325 Mg Tab, 1 TAB PO Q6 Y for PAIN, # 20 TAB Prov:ELENA HUMPHREY 04/01/15 Guaifenesin-Codeine Phosphate* (Robitussin* AC) 5 Ml Syrup, 5 ML PO Q6H Y for COUGH for 7 Days, ML Prov:MILTON COTTO NP 10/17/14 Albuterol Sulfate* (Proair HFA*) 8.5 Gm Hfa.aer.ad, 2 PUFF INH Q6 for 30 Days, INH Prov:MILTON COTTO NP 07/11/14 Follow-up Plan PCP in one week BOWEN BULLARD MD Sep 02, 2016 16:39
== END 2016-09-02 18:48 | disposition home or self-care (01) | DRG 191 ==
LOC: E/R 15:05 → PP2 20:21
PROVIDERS: ADMIT Family Medicine; ATTEND Family Medicine
DX: J44.1 Chronic obstructive pulmonary disease with (acute) exacerbation (principal); J45.901 Unspecified asthma with (acute) exacerbation; I10 Essential (primary) hypertension; Z87.01 Personal history of pneumonia (recurrent); Z88.6 Allergy status to analgesic agent
CPT/HCPCS: 36415; 71010; 80048; 80053; 81001; 81003; 83690; 84484; 85025; 93005; 94640; 94644; 94664; 96361; 96374; J1644; J2920; J2930; J7040

== ENCOUNTER 2017-01-04 08:40 | Inpatient (IN) | payer OTHER ==
[~2017-01-04] VITALS: Ht 154.9 cm; Wt 63.5 kg
[~2017-01-04 08:40] MED LIST changes: -ACET325T33 PO; -ALBU8.5H3 INH; -AZIT250T94 PO; +BENA40TA41 PO; -CIPR500T4 PO; +DOCU100C26 PO; -HYDR-3498 PO; +LEVO500T72 PO; +METO-448 PO; +PRED20TA PO; -UDROBAC PO
[2017-01-04] MEDS ORDERED: AMLO-147 PO (09:13)
[2017-01-04] MEDS ORDERED: NITROGLYCERIN 2% 1 GM OINT PKT TD STA (09:20)
[2017-01-04] MEDS ORDERED: SOD CHLORIDE 0.9% 500 ML IV STA (09:24)
[2017-01-04] MEDS ORDERED: NITROGLYCERIN (SL) 0.4 MG TAB SL PRN (09:30)
[2017-01-04 09:34] LABS: BASOPHILS % 0.5 % (0.0-2.0); EOSINOPHILS # 0.1 10^3/ul (0.0-0.5); EOSINOPHILS % 2.4 % (0.0-7.0); HEMATOCRIT 39.8 % (37.0-47.0); HEMOGLOBIN 12.8 g/dl (12.0-16.0); LYMPHOCYTES # 1.5 10^3/ul (0.8-2.9); LYMPHOCYTES % 26.3 % (15.0-51.0); MEAN CORPUSCULAR HEMOGLOBIN 27.4 pg (29.0-33.0); MEAN CORPUSCULAR HGB CONC 32.2 g/dl (32.0-37.0); MEAN CORPUSCULAR VOLUME 85.2 fl (82.0-101.0); MEAN PLATELET VOLUME 9.2 fl (7.4-10.4); MONOCYTE # 0.8 10^3/ul (0.3-0.9); NEUTROPHIL # 3.3 10^3/ul (1.6-7.5); NEUTROPHILS % 57.3 % (39.0-77.0); PLATELET COUNT 309 10^3/UL (140-415); RED BLOOD COUNT 4.67 10^6/ul (4.20-5.40); RED CELL DISTRIBUTION WIDTH 13.3 % (11.5-14.5); WHITE BLOOD COUNT 5.8 10^3/ul (4.8-10.8)
--- NOTE | 2017-01-04 09:35 | RADRPT ---
PROCEDURE: XR Chest. CLINICAL INDICATION: Chest pain TECHNIQUE: An AP view of the chest was obtained. COMPARISON: No prior exam is available for comparison. FINDINGS: There is prominence of the interstitial markings. No pleural effusion or pneumothorax is seen. Th e cardiomediastinal silhouette is mildly enlarged . Calcifications are seen within the aortic arch. The right hilum and right paratracheal stripe are prominent. The osseous structures demonstrate sen escent changes. IMPRESSION: 1. Prominence of the right hilum and right paratracheal stripe. Findings may be partially exaggera law by patient rotation. Consider a lateral view or CT of the chest for further evaluation. 2. Mild prominence of the interstitial markings, may reflect mild underlying interstitial edema or chronic lung changes. 2. Mild cardiomegaly and aortic atherosclerosis. RPTAT: HH .Wendie Roman MD, Date Time Electronically viewed and signed by .Wendie Roman MD, on 01/04/2017 09:35 .G/
[2017-01-04 09:48] LABS: INR 0.93; PROTIME 12.5 Sec (12.2-14.2)
[2017-01-04 09:49] LABS: PARTIAL THROMBOPLASTIN TIME 30.2 Sec (25.0-35.0)
[2017-01-04 09:53] LABS: ANION GAP 18 (8-16); BLOOD UREA NITROGEN 8 mg/dl (7-20); CALCIUM 9.5 mg/dl (8.4-10.2); CARBON DIOXIDE 35 mmol/L (21-31); CHLORIDE 95 mmol/L (97-110); CREATININE 0.65 mg/dl (0.44-1.00); GLUCOSE 112 mg/dl (70-220); POTASSIUM 3.7 mmol/L (3.5-5.1); SODIUM 144 mmol/L (135-144)
[2017-01-04 10:10] LABS: TROPONIN-I < 0.012 ng/ml (0.00-0.12)
[2017-01-04] MEDS ORDERED: ONDANSETRON 4 MG INJ IV PRN (11:00)
[2017-01-04] MEDS ORDERED: ACETAMINOPHEN 325 MG TAB PO PRN ×2 (11:00→12:30)
[2017-01-04] MEDS ORDERED: DOCUSATE SODIUM 100 MG CAP PO PRN (12:00)
[2017-01-04] MEDS ORDERED: NACL 0.9% 3 ML SYG IV SCH (12:30)
[2017-01-04] MEDS ORDERED: HYDROCODONE/APAP (5/325) TAB PO PRN (12:30)
--- NOTE | 2017-01-04 12:41 | ERA ---
ER Documentation Chief Complaint Date/Time DATE: 01/04/17 TIME: 12:37 Chief Complaint CP X 4 DAYS, COUGH C X 3 DAYS HPI Patient is an 81-year-old female with hypertension and asthma who presents with chest pain. She has had chest pain for the past 3 days. She has a cough as well which was a dry cough. The chest pain is right-sided and radiates to her back. It is associated with shortness of breath. It is worse with laying down. The symptoms have been constant. Upon review of old medical records this the patient's eighth visit to the ER since 2012. She goes to a local clinic for her care. ROS All systems reviewed and are negative except as per history of present illness. Medications Home Meds Active Scripts Montelukast Sodium* (Singulair*) 10 Mg Tab, 10 MG PO HS for 30 Days Prov:MILTON COTTO NP 07/22/14 Reported Medications Amlodipine Besylate* (Amlodipine Besylate*) 10 Mg Tablet, 10 MG PO DAILY, #30 TAB 01/04/17 Docusate Sodium* (Doc-Q-Lace*) 100 Mg Capsule, 100 MG PO BID Y for CONSTIPATION , CAP 08/30/16 Metoprolol Tartrate* (Lopressor*) 25 Mg Tab, 25 MG PO BID, #60 TAB 08/30/16 Benazepril Hcl* (Benazepril Hcl*) 40 Mg Tablet, 40 MG PO DAILY, #30 TAB 08/30/16 Hydrochlorothiazide* (Hydrochlorothiazide*) 25 Mg Tab, 25 MG PO DAILY, TAB 07/09/14 Discontinued Scripts Prednisone* (Prednisone*) 20 Mg Tab, 20 MG PO BID for 3 Days, TAB Prov:BOWEN BULLARD MD 09/02/16 Levofloxacin* (Levaquin*) 500 Mg Tablet, 500 MG PO DAILY for 5 Days, TAB Prov:BOWEN BULLARD MD 09/02/16 Albuterol Sulfate* (Ventolin HFA*) 18 Gm Hfa.aer.ad, 2 PUFF INHALATION Q4H, #1 INHALER Prov:LEXIS SANDERSON 08/29/16 Amlodipine Besylate* (Norvasc*) 10 Mg Tablet, 10 MG PO DAILY, #30 TAB Prov:LEXIS MOORE MD 01/02/16 Allergies Allergies: Coded Allergies: aspirin (Verified Allergy, Unknown, 01/04/17) PMhx/Soc History of Surgery: Yes (C- section, hysterectomy) Anesthesia Reaction: No Hx Neurological Disorder: No Hx Respiratory Disorders: Yes (asthma) Hx Cardiac Disorders: Yes (HTN) Hx Psychiatric Problems: No Hx Miscellaneous Medical Probl: Yes (asthma, HTN, wrist fx from fall) Hx Alcohol Use: No Hx Substance Use: No Hx Tobacco Use: No Smoking Status: Never smoker FmHx Family History: diabetes, No coronary disease Physical Exam Vitals Vital Signs Date Time Temp Pulse Resp B/P Pulse Ox O2 Delivery O2 Flow Rate FiO2 01/04/17 10:45 112 18 122/61 94 01/04/17 09:11 102 18 12/62 94 01/04/17 08:44 98.1 112 18 123/75 94 Physical Exam Const: Mild distress Head: Atraumatic Eyes: Normal Conjunctiva ENT: Normal External Ears, Nose and Mouth. Neck: Full range of motion..~ No meningismus. Resp: Clear to auscultation bilaterally Cardio: Tachycardic rate with irregular rhythm Abd: Soft, non tender, non distended. Normal bowel sounds Skin: No petechiae or rashes Back: No midline or flank tenderness Ext: No cyanosis, or edema Neur: Awake and alert Psych: Normal Mood and Affect Result Diagram: 01/04/1716 01/04/17 0916 Results 24 hrs Laboratory Tests Test 01/04/17 09:16 White Blood Count 5.810^3/ul Red Blood Count 4.6710^6/ul Hemoglobin 12.8g/dl Hematocrit 39.8% Mean Corpuscular Volume 85.2fl Mean Corpuscular Hemoglobin 27.4pg Mean Corpuscular Hemoglobin Concent 32.2g/dl Red Cell Distribution Width 13.3% Platelet Count 92469^3/UL Mean Platelet Volume 9.2fl Neutrophils % 57.3% Lymphocytes % 26.3% Monocytes % 13.0% Eosinophils % 2.4% Basophils % 0.5% Nucleated Red Blood Cells % 0.0/100WBC Neutrophils # 3.310^3/ul Lymphocytes # 1.510^3/ul Monocytes # 0.810^3/ul Eosinophils # 0.110^3/ul Basophils # 0.010^3/ul Nucleated Red Blood Cells # 0.010^3/ul Prothrombin Time 12.5Sec Prothrombin Time Ratio 1.0 INR International Normalized Ratio 0.93 Activated Partial Thromboplast Time 30.2Sec Sodium Level 144mmol/L Potassium Level 3.7mmol/L Chloride Level 95mmol/L Carbon Dioxide Level 35mmol/L Anion Gap 18 Blood Urea Nitrogen 8mg/dl Creatinine 0.65mg/dl Glucose Level 112mg/dl Calcium Level 9.5mg/dl Troponin I < 0.012ng/ml Current Medications Medications (Trade) Dose Ordered Sig/Rosy Route PRN Reason Start Time Stop Time Status Last Admin Dose Admin Nitroglycerin (Nitroglycerin 2% Oint) 1 inch ONCE STAT TD 01/04/17 09:20 01/04/17 09:21 DC 01/04/17 09:35 Nitroglycerin 1 tab 1 tab Q5M UP TO 3 DOSES PRN SL CHEST PAIN 01/04/17 09:30 Sodium Chloride (NS) 500 ml @ 500 mls/hr Q1H STAT IV 01/04/17 09:24 01/04/17 10:23 DC 01/04/17 09:35 Ondansetron HCl (Zofran Inj) 4 mg ER BRIDGE PRN IV NAUSEA AND/OR VOMITING 01/04/17 11:00 01/05/17 10:59 Acetaminophen (Tylenol Tab) 650 mg ER BRIDGE PRN PO MILD PAIN/FEVER 01/04/17 11:00 01/05/17 10:59 Amlodipine Besylate (Norvasc) 10 mg DAILY PO 01/05/17 09:00 Benazepril HCl (Lotensin) 40 mg DAILY PO 01/05/17 09:00 Docusate Sodium (Colace) 100 mg BID PRN PO CONSTIPATION 01/04/17 12:00 01/04/17 12:16 DC Hydrochlorothiazide (Hydrochlorothiazide) 25 mg DAILY PO 01/05/17 09:00 Metoprolol Tartrate (Lopressor) 25 mg BID PO 01/04/17 21:00 Montelukast Sodium (Singulair) 10 mg HS PO 01/04/17 21:00 IV Flush (NS 3 ml) 3 ml PER PROTOCOL IV 01/04/17 12:30 Acetaminophen (Tylenol Tab) 650 mg Q6H PRN PO PAIN LEVEL 1-3 OR FEVER 01/04/17 12:30 Acetaminophen/ Hydrocodone Bitart ([place] (5/325)) 1 tab Q6H PRN PO PAIN LEVEL 4-6 01/04/17 12:30 Docusate Sodium (Colace) 100 mg Q12H PRN PO CONSTIPATION 01/04/17 12:30 Enoxaparin Sodium (Lovenox) 40 mg DAILY SC 01/05/17 09:00 Procedures/MDM EKG read by me: Rate/Rhythm: Atrial fibrillation with tachycardia Intervals: Normal Impression: Atrial fibrillation with rapid ventricular response PROCEDURE: XR Chest. CLINICAL INDICATION: Chest pain TECHNIQUE: An AP view of the chest was obtained. COMPARISON: No prior exam is available for comparison. FINDINGS: There is prominence of the interstitial markings. No pleural effusion or pneumothorax is seen. The cardiomediastinal silhouette is mildly enlarged . Calcifications are seen within the aortic arch. The right hilum and right paratracheal stripe are prominent. The osseous structures demonstrate senescent changes. IMPRESSION: 1. Prominence of the right hilum and right paratracheal stripe. Findings may be partially exaggerated by patient rotation. Consider a lateral view or CT of the chest for further evaluation. 2. Mild prominence of the interstitial markings, may reflect mild underlying interstitial edema or chronic lung changes. 2. Mild cardiomegaly and aortic atherosclerosis. RPTAT: HH .Wendie Roman MD, MD Date Time Electronically viewed and signed by .Wendie Roman MD, MD on 01/04/2017 09 :35 Patient is an 81-year-old female presents with chest pain and shortness of breath. She was found to have rapid A. fib. The patient was given nitroglycerin and fluids. She has an allergy to aspirin so this was held. The patient will be admitted to the care of the panel team to a telemetry bed. I doubt pneumonia, pneumothorax, pulmonary embolism, or aortic dissection. Departure Diagnosis: Primary Impression: Rapid atrial fibrillation Additional Impression: Chest pain Qualified Code: R07.9 - Chest pain, unspecified type Condition: ELIEZER Sanders MD Jan 04, 2017 12:41
--- NOTE | 2017-01-04 13:52 | HP ---
Date/Time of Note Date/Time of Note DATE: 01/04/17 TIME: 13:50 Assessment/Plan VTE Prophylaxis VTE Prophylaxis Intervention: SCD's Lines/Catheters IV Catheter Type (from Nrs): Saline Lock Assessment/Plan Assessment/Plan 81 F with pmhx asthma presents with 1 week progressive SOB, found to be in RVR. Suspect RVR provoked by acute on chronic asthma exacerbation #AFib with RVR -cont bb-->may need to uptitrate -cont tele -check TSH -discuss ATC with patient -ACS ro, TTE #asthma: unclear what pt is on at home. Unable to reach home pharmacy trial of PO and inhaled steroids, duonebs #HTN: cont home meds general diet DVT prophx HPI/ROS Admit Date/Time Admit Date/Time Hx of Present Illness CC SOB x 8 days 81 F with pmhx asthma presents with 8 days of SOB. Reports symptoms have been gradually worsening.+eye itching, no drainage. +scratchy throat. Occ cough productive of white phlegm. Sometimes has chest discomfort after coughing spells. No fevers,+chills. No LE swelling. States she has gone from sleeping on 2 pillows to 3 pillows. No LE swelling of note, in ER found to be in AFib with RVR. HR improved with nitro? PMH/Family/Social Social History lives in the community Smoking Status: Never smoker Exam/Review of Systems Vital Signs Vitals Vital Signs Date Time Temp Pulse Resp B/P Pulse Ox O2 Delivery O2 Flow Rate FiO2 01/04/17 10:45 112 18 122/61 94 01/04/17 08:44 98.1 Exam Exam nad, no mrg op clear, no thrush or sig OP erythema no mrg lungs with poor air movement abd soft no rashes no le edema labs reviewed, WBCs nl. CXR without clear infiltrate Labs Result Diagram: 01/04/1791501/04/17915 Medications Medications Current Medications Amlodipine Besylate (Norvasc) 10 mg DAILY PO ; Start 01/05/17 at 09:00 Benazepril HCl (Lotensin) 40 mg DAILY PO ; Start 01/05/17 at 09:00 Hydrochlorothiazide (Hydrochlorothiazide) 25 mg DAILY PO ; Start 01/05/17 at 09: 00 Metoprolol Tartrate (Lopressor) 25 mg BID PO ; Start 01/04/17 at 21:00 Montelukast Sodium (Singulair) 10 mg HS PO ; Start 01/04/17 at 21:00 Acetaminophen (Tylenol Tab) 650 mg Q6H PRN PO PAIN LEVEL 1-3 OR FEVER; Start at 12:30 Acetaminophen/ Hydrocodone Bitart ([place] (5/325)) 1 tab Q6H PRN PO PAIN LEVEL 4 -6; Start 01/04/17 at 12:30 Docusate Sodium (Colace) 100 mg Q12H PRN PO CONSTIPATION; Start 01/04/17 at 12: 30 Enoxaparin Sodium (Lovenox) 40 mg DAILY SC ; Start 01/05/17 at 09:00 SABAS MUNOZ MD Jan 04, 2017 13:52
--- NOTE | 2017-01-04 15:51 | RADRPT ---
PROCEDURE: XR Chest. CLINICAL INDICATION: Shortness of breath TECHNIQUE: Single frontal chest x-ray. COMPARISON: 09:22 a.m. FINDINGS: The lungs are clear of acute infiltrates, edema, or masses. There is trace left pleural effusion marin nting the costophrenic angle. Prominent interstitial markings are present likely chronic or senescen t in nature.. Mild cardiomegaly with calcific atherosclerosis of the aorta is present.. The osseous structures are intact. IMPRESSION: Trace left pleural effusion. Cardiomegaly with senescent changes of the chest.. RPTAT: GG .Josue Cortes MD, Date Time Electronically viewed and signed by .Josue Cortes MD, on 01/04/2017 15:50 .L/
[2017-01-04 16:32] LABS: CREATINE KINASE 36 IU/L (23-200)
[2017-01-04 16:44] LABS: TROPONIN-I < 0.012 ng/ml (0.00-0.12)
[2017-01-04] MEDS: ALBUTEROL/IPRATROPIUM (NEB) 3 ML AMP HHN SCH ×2 (17:00→20:27)
[2017-01-04 17:02] VITALS: PULSE 100
[2017-01-04 17:10] VITALS: Ht 154.9 cm; Wt 63.5 kg
[2017-01-04] MEDS ORDERED: FUROSEMIDE 40 MG INJ IV ONE (17:30)
[2017-01-04 20:04] VITALS: PULSE 100
[2017-01-04 20:09] VITALS: BP 117/74; RESP 18
[2017-01-04] MEDS: MONTELUKAST 10 MG TAB PO SCH (20:51)
[2017-01-04] MEDS: METOPROLOL 50 MG TAB PO SCH (20:52)
[2017-01-04] MEDS ORDERED: METOPROLOL 25 MG TAB PO SCH (21:00)
[2017-01-04 21:22] LABS: CREATINE KINASE 34 IU/L (23-200)
[2017-01-04 21:35] LABS: CK-MB 0.81 ng/ml (0.0-2.4)
[2017-01-04 21:37] LABS: TROPONIN-I < 0.012 ng/ml (0.00-0.12)
[2017-01-05] VITALS (12 sets, daily range): BP systolic 92–125; BP diastolic 54–79; PULSE 63–94; RESP 18–19
[2017-01-05] MEDS: ALBUTEROL/IPRATROPIUM (NEB) 3 ML AMP HHN SCH ×5 (01:00→20:32)
[2017-01-05] MEDS ORDERED: AMLODIPINE 10 MG TAB PO SCH (09:00)
[2017-01-05] MEDS: MOMETASONE 0.24 GM INHALER INH SCH (09:11)
[2017-01-05] MEDS: HYDROCHLOROTHIAZIDE 25 MG TAB PO SCH (09:12)
[2017-01-05] MEDS: BENAZEPRIL 40 MG TAB PO SCH (09:12)
[2017-01-05] MEDS: METOPROLOL 50 MG TAB PO SCH ×2 (09:12→21:00)
[2017-01-05] MEDS: predniSONE 20 MG TAB PO SCH (09:12)
[2017-01-05] MEDS: ENOXAPARIN 40 MG/0.4 ML SYG SC SCH (09:24)
[2017-01-05 09:46] LABS: CALCIUM 9.4 mg/dl (8.4-10.2); CREATININE 0.7 mg/dl (0.44-1.00); MAGNESIUM 1.4 mg/dl (1.7-2.5); PHOSPHORUS 3.6 mg/dl (2.5-4.9); POTASSIUM 3.6 mmol/L (3.5-5.1)
--- NOTE | 2017-01-05 15:47 | PN ---
Date/Time of Note Date/Time of Note DATE: 01/05/17 TIME: 15:45 Assessment/Plan VTE Prophylaxis VTE Prophylaxis Intervention: SCD's Lines/Catheters IV Catheter Type (from Nrs): Saline Lock Urinary Cath still in place: No Assessment/Plan Assessment/Plan 81 F with pmhx asthma presents with 1 week progressive SOB, found to be in RVR. Suspect RVR provoked by acute on chronic asthma exacerbation #AFib with RVR:RESOLVED -uptitated bb -cont tele -discuss ATC with patient tomorrow -ACS ro complete, TTE #asthma: unclear what pt is on at home. cont trial of PO and inhaled steroids, duonebs #HTN: cont home meds general diet DVT prophx Subjective 24 Hr Interval Summary Free Text/Dictation breathing almost back to baseline. Has been coughing up some orange phlegm HR consistently <100 Exam/Review of Systems Vital Signs Vitals Vital Signs Date Time Temp Pulse Resp B/P Pulse Ox O2 Delivery O2 Flow Rate FiO2 01/05/17 14:55 98.0 75 18 103/60 96 01/05/17 12:21 Nasal Cannula 2.0 Intake and Output 01/04/17 01/04/17 01/05/17 15:00 23:00 07:00 Intake Total 300 ml Balance 300 ml Exam nad, sitting up in bed increased air movement, no crackles or wheezing no mrg abd soft no rashes serial trops neg TSH nl Results Result Diagram: 01/04/1716 01/05/17 0903 Results 24 hrs Laboratory Tests Test 01/04/17 15:55 01/04/17 20:10 01/05/17 09:03 Creatine Kinase 36 34 Creatine Kinase Index 1.7 2.4 Creatinine Kinase MB (Mass) 0.60 0.81 Troponin I < 0.012 < 0.012 Sodium Level 143 Potassium Level 3.6 Chloride Level 95 L Carbon Dioxide Level 35 H Anion Gap 17 H Blood Urea Nitrogen 13 Creatinine 0.70 Glucose Level 163 Calcium Level 9.4 Phosphorus Level 3.6 Magnesium Level 1.4 L Medications Medications Current Medications Benazepril HCl (Lotensin) 40 mg DAILY PO Last administered on 01/05/17 09:12; Admin Dose 40 MG; Start 01/05/17 at 09:00 Hydrochlorothiazide (Hydrochlorothiazide) 25 mg DAILY PO Last administered on 09:12; Admin Dose 25 MG; Start 01/05/17 at 09:00 Montelukast Sodium (Singulair) 10 mg HS PO Last administered on 01/04/17 20:51 ; Admin Dose 10 MG; Start 01/04/17 at 21:00 Acetaminophen (Tylenol Tab) 650 mg Q6H PRN PO PAIN LEVEL 1-3 OR FEVER; Start at 12:30 Acetaminophen/ Hydrocodone Bitart ([place] (5/325)) 1 tab Q6H PRN PO PAIN LEVEL 4 -6; Start 01/04/17 at 12:30 Docusate Sodium (Colace) 100 mg Q12H PRN PO CONSTIPATION; Start 01/04/17 at 12: 30 Enoxaparin Sodium (Lovenox) 40 mg DAILY SC Last administered on 01/05/17 09:24 ; Admin Dose 40 MG; Start 01/05/17 at 09:00 Mometasone Furoate (Asmanex) 1 puff DAILY INH Last administered on 01/05/17 09 :11; Admin Dose 1 PUFF; Start 01/05/17 at 09:00 Prednisone (Prednisone) 40 mg DAILY PO Last administered on 01/05/17 09:12; Admin Dose 40 MG; Start 01/05/17 at 09:00 Metoprolol Tartrate (Lopressor) 50 mg BID PO Last administered on 01/05/17 09: 12; Admin Dose 50 MG; Start 01/04/17 at 21:00 SABAS MUNOZ MD Jan 05, 2017 15:47
[2017-01-05] MEDS ORDERED: MAGNESIUM OXIDE 400 MG TAB PO ONE (16:00)
[2017-01-05] MEDS: MONTELUKAST 10 MG TAB PO SCH (21:37)
[2017-01-06] VITALS (12 sets, daily range): BP systolic 94–116; BP diastolic 56–73; PULSE 73–99; RESP 16–20
[2017-01-06] MEDS: DOCUSATE SODIUM 100 MG CAP PO PRN ×2 (06:29→21:55)
[2017-01-06] MEDS: ALBUTEROL/IPRATROPIUM (NEB) 3 ML AMP HHN SCH ×4 (08:03→20:02)
[2017-01-06] MEDS: METOPROLOL 50 MG TAB PO SCH (08:53)
[2017-01-06] MEDS: BENAZEPRIL 40 MG TAB PO SCH (08:53)
[2017-01-06] MEDS: HYDROCHLOROTHIAZIDE 25 MG TAB PO SCH (08:53)
[2017-01-06] MEDS: predniSONE 20 MG TAB PO SCH (08:54)
[2017-01-06] MEDS: MOMETASONE 0.24 GM INHALER INH SCH (08:54)
[2017-01-06] MEDS: ENOXAPARIN 40 MG/0.4 ML SYG SC SCH (09:36)
--- NOTE | 2017-01-06 16:05 | RADRPT ---
Echocardiogram Report Patient Name: LONNIE GAINES Gender: Female Date: 1935 Study Date: 06-Jan-2017 Transcription Typist: Opal Nguyen ROSALINA Location: [id number] Ref. Physician: SABAS MUNOZ Quality: Adequate Procedures: Transthoracic echocardiogram with complete 2D, M-Mode, and doppler examination. Indications: Shortness of breath. 2D/M Mode Doppler Measurement Value Normal Ranges Measurement Value Normal Ranges LVIDd 2D 3.7 3.5 - 5.6 cm AV Peak Paul 1.3 m/sec LVIDs 2D 2.5 2.1 - 4.1 cm AV Peak PG 7.0 mmHg FS 2D 33.3 % AI Peak PG 50.0 mmHg LVPWd 2D 1.3 0.6 - 1.1 cm AI Peak Paul 3.5 m/sec IVSd 2D 1.3 0.6 - 1.1 cm AI PHT 603.0 msec IVS/LVPW 2D 1.0 LVOT Peak Paul 1.0 m/sec AoR Diam 2D 3.2 2.0 - 3.7 cm LVOT Peak PG 4.0 mmHg LA/Ao 2D 1 0 - 1 MV E Peak Paul 0.8 m/sec EDV 2D 51.5 cm3 MV Decel Time 169 msec ESV 2D 15.3 cm3 TR Peak Paul 3.0 m/sec LA Dimen 2D 3.5 2.3 - 4.0 cm TR Peak PG 37.0 mmHg RVSP 40.0 mmHg Findings Left Ventricle: Normal left ventricular cavity size. Mild concentric left ventricular hypertrophy. Mild global left ventricular systolic dysfunction. Ejection fraction is visually estimated at 40 %. Right Ventricle: Normal right ventricular size. Normal right ventricular systolic function. Left Atrium: The left atrium is normal in size. Right Atrium: The right atrium is normal in size. Mitral Valve: Mitral valve leaflets appear mildly thickened. Mild mitral annular calcification. Mild to moderate mitral valve regurgitation. Aortic Valve: No hemodynamically significant aortic stenosis by doppler. Aortic cusps appear mildly calcified. Mild aortic valve regurgitation. Tricuspid Valve: Normal appearance of the tricuspid valve. Estimated peak PA systolic pressure 40 mmHg. There is mild tricuspid regurgitation. Pulmonic Valve: Pulmonic valve not well visualized. Pericardium: Normal pericardium with no significant pericardial effusion. Aorta: Normal aortic root. IVC: Normal size and normal respiratory collapse consistent with normal right atrial pressure. Conclusions 1.Normal left ventricular cavity size. Mild concentric left ventricular hypertrophy. Mild global left ventricular systolic dysfunction. Ejection fraction is visually estimated at 40 %. 2.Mitral valve leaflets appear mildly thickened. Mild mitral annular calcification. Mild to moderate mitral valve regurgitation. 3.No hemodynamically significant aortic stenosis by doppler. Aortic cusps appear mildly calcified. Mild aortic valve regurgitation. 4.Normal appearance of the tricuspid valve. Estimated peak PA systolic pressure 40 mmHg. There is mild tricuspid regurgitation. Electronically Signed By: Ozzy Arenas 06-Jan-2017 16:05:20 -[id number] Patient Name: LONNIE GAINES Study Date: 06-Jan-[id number]
--- NOTE | 2017-01-06 16:53 | PN ---
Date/Time of Note Date/Time of Note DATE: 01/06/17 TIME: 16:52 Assessment/Plan VTE Prophylaxis VTE Prophylaxis Intervention: SCD's, other Lines/Catheters IV Catheter Type (from Nrsg): Saline Lock Urinary Cath still in place: No Assessment/Plan Assessment/Plan 81 F with pmhx asthma presents with 1 week progressive SOB, found to be in RVR. Suspect RVR provoked by acute on chronic asthma exacerbation v acute on chronic systolic HF #AFib with RVR: -uptitate bb, dc acei to prevent iatrogenic hypotension -cont tele -discuss ATC with patient #TTE with decline in EF -dieretcs -cards eval #asthma: unclear what pt is on at home. cont trial of PO and inhaled steroids, duonebs #HTN: BP meds as above general diet DVT prophx Subjective 24 Hr Interval Summary Free Text/Dictation Coughing more, breathing unchanged Exam/Review of Systems Vital Signs Vitals Vital Signs Date Time Temp Pulse Resp B/P Pulse Ox O2 Delivery O2 Flow Rate FiO2 01/06/17 16:48 101 22 94 Nasal Cannula 2.0 01/06/17 15:12 97.9 109/57 Intake and Output 01/05/17 01/05/17 01/06/17 15:00 23:00 07:00 Intake Total 950 ml 400 ml Balance 950 ml 400 ml Exam nad, sitting up in bed +bb crackles no mrg abd soft no rashes TTE with EF 40%, down from 50% 2 yrs ago Results Result Diagram: 01/04/1716 01/05/17 0903 Medications Medications Current Medications Hydrochlorothiazide (Hydrochlorothiazide) 25 mg DAILY PO Last administered on 08:53; Admin Dose 25 MG; Start 01/05/17 at 09:00 Montelukast Sodium (Singulair) 10 mg HS PO Last administered on 01/05/17 21:37 ; Admin Dose 10 MG; Start 01/04/17 at 21:00 Acetaminophen (Tylenol Tab) 650 mg Q6H PRN PO PAIN LEVEL 1-3 OR FEVER; Start at 12:30 Acetaminophen/ Hydrocodone Bitart ([place] (5/325)) 1 tab Q6H PRN PO PAIN LEVEL 4 -6 Last administered on 01/06/17 06:32; Admin Dose 1 TAB; Start 01/04/17 at 12: 30 Docusate Sodium (Colace) 100 mg Q12H PRN PO CONSTIPATION Last administered on 06:29; Admin Dose 100 MG; Start 01/04/17 at 12:30 Enoxaparin Sodium (Lovenox) 40 mg DAILY SC Last administered on 01/06/17 09:36 ; Admin Dose 40 MG; Start 01/05/17 at 09:00 Mometasone Furoate (Asmanex) 1 puff DAILY INH Last administered on 01/06/17 08 :54; Admin Dose 1 PUFF; Start 01/05/17 at 09:00 Prednisone (Prednisone) 40 mg DAILY PO Last administered on 01/06/17 08:54; Admin Dose 40 MG; Start 01/05/17 at 09:00 Metoprolol Tartrate (Lopressor) 75 mg BID PO ; Start 01/06/17 at 21:00 Furosemide (Lasix) 40 mg ONCE ONCE PO ; Start 01/06/17 at 17:00; Stop 01/06/17 at 17:01; Status UNV Furosemide (Lasix) 40 mg DAILY PO ; Start 01/07/17 at 09:00; Status UNV SABAS MUNOZ MD Jan 06, 2017 16:53
[2017-01-06] MEDS ORDERED: FUROSEMIDE 40 MG TAB PO ONE (17:00)
[2017-01-06] MEDS: METOPROLOL 25 MG TAB PO SCH (21:00)
[2017-01-06] MEDS: MONTELUKAST 10 MG TAB PO SCH (21:55)
[2017-01-07] VITALS (12 sets, daily range): BP systolic 95–109; BP diastolic 50–65; PULSE 73–105; RESP 15–20
[2017-01-07] MEDS: FUROSEMIDE 40 MG TAB PO SCH (05:22)
[2017-01-07] MEDS: ALBUTEROL/IPRATROPIUM (NEB) 3 ML AMP HHN SCH ×4 (08:03→20:29)
[2017-01-07] MEDS: predniSONE 20 MG TAB PO SCH (08:52)
[2017-01-07] MEDS: METOPROLOL 25 MG TAB PO SCH ×2 (08:56→21:22)
[2017-01-07] MEDS: MOMETASONE 0.24 GM INHALER INH SCH (08:57)
[2017-01-07] MEDS: ENOXAPARIN 40 MG/0.4 ML SYG SC SCH (08:57)
[2017-01-07] MEDS: HYDROCHLOROTHIAZIDE 25 MG TAB PO SCH (11:42)
--- NOTE | 2017-01-07 18:18 | PN ---
Date/Time of Note Date/Time of Note DATE: 01/07/17 TIME: 18:16 Assessment/Plan VTE Prophylaxis VTE Prophylaxis Intervention: SCD's Lines/Catheters IV Catheter Type (from Nrsg): Saline Lock Urinary Cath still in place: No Assessment/Plan Assessment/Plan 81 F with pmhx asthma presents with 1 week progressive SOB, found to be in RVR. Suspect RVR provoked by acute on chronic asthma exacerbation v acute on chronic systolic HF #AFib with RVR: -uptitate bb, dc acei to prevent iatrogenic hypotension HR slightly improved -cont tele -discuss ATC with patient-->starting asa 325 #TTE with decline in EF -dieretics -cards eval requested yesterday #asthma: unclear what pt is on at home. cont trial of PO and inhaled steroids, duonebs #HTN: BP meds as above general diet DVT prophx Subjective 24 Hr Interval Summary Free Text/Dictation Feeling a little better Exam/Review of Systems Vital Signs Vitals Vital Signs Date Time Temp Pulse Resp B/P Pulse Ox O2 Delivery O2 Flow Rate FiO2 01/07/17 17:44 74 18 97 Nasal Cannula 2.0 01/07/17 15:44 98.6 100/61 Intake and Output 01/06/17 01/06/17 01/07/17 15:00 23:00 07:00 Intake Total 800 ml Balance 800 ml Exam nad no mrg lungs clear abd soft no rashes Results Result Diagram: 01/04/17 0916 01/05/17 0903 Medications Medications Current Medications Hydrochlorothiazide (Hydrochlorothiazide) 25 mg DAILY PO Last administered on 11:42; Admin Dose 25 MG; Start 01/05/17 at 09:00 Montelukast Sodium (Singulair) 10 mg HS PO Last administered on 01/06/17 21:55 ; Admin Dose 10 MG; Start 01/04/17 at 21:00 Acetaminophen (Tylenol Tab) 650 mg Q6H PRN PO PAIN LEVEL 1-3 OR FEVER; Start at 12:30 Acetaminophen/ Hydrocodone Bitart ([place] (5/325)) 1 tab Q6H PRN PO PAIN LEVEL 4 -6 Last administered on 01/06/17 06:32; Admin Dose 1 TAB; Start 01/04/17 at 12: 30 Docusate Sodium (Colace) 100 mg Q12H PRN PO CONSTIPATION Last administered on 21:55; Admin Dose 100 MG; Start 01/04/17 at 12:30 Enoxaparin Sodium (Lovenox) 40 mg DAILY SC Last administered on 01/07/17 08:57 ; Admin Dose 40 MG; Start 01/05/17 at 09:00 Mometasone Furoate (Asmanex) 1 puff DAILY INH Last administered on 01/07/17 08 :57; Admin Dose 1 PUFF; Start 01/05/17 at 09:00 Prednisone (Prednisone) 40 mg DAILY PO Last administered on 01/07/17 08:52; Admin Dose 40 MG; Start 01/05/17 at 09:00 Metoprolol Tartrate (Lopressor) 75 mg BID PO Last administered on 01/07/17 08: 56; Admin Dose 75 MG; Start 01/06/17 at 21:00 Furosemide (Lasix) 40 mg DAILY@06 PO ; Start 01/07/17 at 06:00 SABAS MUNOZ MD Jan 07, 2017 18:18
[2017-01-07] MEDS ORDERED: GUAIFENESIN 20 MG/ML 5ML CUP PO PRN (18:30)
[2017-01-07] MEDS: FLUTICASONE 0.05% 16 GM NAS SPRAY NASAL SCH (21:21)
[2017-01-07] MEDS: MONTELUKAST 10 MG TAB PO SCH (21:21)
[2017-01-08] VITALS (13 sets, daily range): BP systolic 93–115; BP diastolic 58–69; PULSE 69–90; RESP 15–20
[2017-01-08] MEDS: FUROSEMIDE 40 MG TAB PO SCH (05:54)
[2017-01-08] MEDS ORDERED: ASPIRIN 325 MG TAB PO SCH (09:00)
[2017-01-08] MEDS: METOPROLOL 25 MG TAB PO SCH ×2 (09:15→21:09)
[2017-01-08] MEDS: predniSONE 20 MG TAB PO SCH (09:15)
[2017-01-08] MEDS: HYDROCHLOROTHIAZIDE 25 MG TAB PO SCH (09:16)
[2017-01-08] MEDS: FLUTICASONE 0.05% 16 GM NAS SPRAY NASAL SCH ×2 (09:16→21:09)
[2017-01-08] MEDS: MOMETASONE 0.24 GM INHALER INH SCH (09:16)
[2017-01-08] MEDS: ENOXAPARIN 40 MG/0.4 ML SYG SC SCH (09:17)
[2017-01-08] MEDS: ALBUTEROL/IPRATROPIUM (NEB) 3 ML AMP HHN SCH ×4 (09:29→20:37)
--- NOTE | 2017-01-08 18:16 | PN ---
Date/Time of Note Date/Time of Note DATE: 01/08/17 TIME: 18:15 Assessment/Plan VTE Prophylaxis VTE Prophylaxis Intervention: SCD's Lines/Catheters IV Catheter Type (from Nrsg): Saline Lock Urinary Cath still in place: No Assessment/Plan Assessment/Plan 81 F with pmhx asthma presents with 1 week progressive SOB, found to be in RVR. Suspect RVR provoked by acute on chronic asthma exacerbation v acute on chronic systolic HF #AFib with RVR: -uptitate bb, dc acei to prevent iatrogenic hypotension HR slightly improved -cont tele -discuss ATC with patient tomorrow? apparently pt with asa allergy? #TTE with decline in EF -diuretics -cards eval #asthma: unclear what pt is on at home. cont trial of PO and inhaled steroids, duonebs. last day of steroids tomorrow, order entered #HTN: BP meds as above Subjective 24 Hr Interval Summary Free Text/Dictation breathing stable HR ok Exam/Review of Systems Vital Signs Vitals Vital Signs Date Time Temp Pulse Resp B/P Pulse Ox O2 Delivery O2 Flow Rate FiO2 01/08/17 16:45 98.2 79 16 104/58 95 Nasal Cannula 2.0 Intake and Output 01/07/17 01/07/17 01/08/17 15:00 23:00 07:00 Intake Total 1500 ml 1100 ml Balance 1500 ml 1100 ml Exam nad laying in bed no mrg lungs clear abd soft no rashes Results Result Diagram: 01/04/17 0916 01/05/17 0903 Medications Medications Current Medications Hydrochlorothiazide (Hydrochlorothiazide) 25 mg DAILY PO Last administered on 09:16; Admin Dose 25 MG; Start 01/05/17 at 09:00 Montelukast Sodium (Singulair) 10 mg HS PO Last administered on 01/07/17 21:21 ; Admin Dose 10 MG; Start 01/04/17 at 21:00 Acetaminophen (Tylenol Tab) 650 mg Q6H PRN PO PAIN LEVEL 1-3 OR FEVER; Start at 12:30 Acetaminophen/ Hydrocodone Bitart ([place] (5/325)) 1 tab Q6H PRN PO PAIN LEVEL 4 -6 Last administered on 01/06/17 06:32; Admin Dose 1 TAB; Start 01/04/17 at 12: 30 Docusate Sodium (Colace) 100 mg Q12H PRN PO CONSTIPATION Last administered on 21:55; Admin Dose 100 MG; Start 01/04/17 at 12:30 Enoxaparin Sodium (Lovenox) 40 mg DAILY SC Last administered on 01/08/17 09:17 ; Admin Dose 40 MG; Start 01/05/17 at 09:00 Mometasone Furoate (Asmanex) 1 puff DAILY INH Last administered on 01/08/17 09 :16; Admin Dose 1 PUFF; Start 01/05/17 at 09:00 Prednisone (Prednisone) 40 mg DAILY PO Last administered on 01/08/17 09:15; Admin Dose 40 MG; Start 01/05/17 at 09:00 Metoprolol Tartrate (Lopressor) 75 mg BID PO Last administered on 01/08/17 09: 15; Admin Dose 75 MG; Start 01/06/17 at 21:00 Furosemide (Lasix) 40 mg DAILY@06 PO Last administered on 01/08/17 05:54; Admin Dose 40 MG; Start 01/07/17 at 06:00 Fluticasone Propionate (Flonase 0.05% Nasal) 1 spray BID NASAL Last administered on 01/08/17 09:16; Admin Dose 1 SPRAY; Start 01/07/17 at 21:00 Guaifenesin (Robitussin Liquid Cup) 100 mg Q4H PRN PO COUGH; Start 01/07/17 at 18:30 SABAS MUNOZ MD Jan 08, 2017 18:16
[2017-01-08] MEDS: MONTELUKAST 10 MG TAB PO SCH (21:09)
[2017-01-09] VITALS (11 sets, daily range): BP systolic 86–106; BP diastolic 53–68; PULSE 70–90; RESP 19–20
[2017-01-09] MEDS: FUROSEMIDE 40 MG TAB PO SCH (05:27)
[2017-01-09] MEDS: ALBUTEROL/IPRATROPIUM (NEB) 3 ML AMP HHN SCH ×4 (07:44→20:23)
[2017-01-09] MEDS: MOMETASONE 0.24 GM INHALER INH SCH (08:31)
[2017-01-09] MEDS: FLUTICASONE 0.05% 16 GM NAS SPRAY NASAL SCH ×2 (08:31→20:47)
[2017-01-09] MEDS: METOPROLOL 25 MG TAB PO SCH ×2 (08:31→20:47)
[2017-01-09] MEDS: predniSONE 20 MG TAB PO SCH (08:31)
[2017-01-09] MEDS: HYDROCHLOROTHIAZIDE 25 MG TAB PO SCH (08:32)
[2017-01-09] MEDS: ENOXAPARIN 40 MG/0.4 ML SYG SC SCH (08:34)
--- NOTE | 2017-01-09 11:44 | PN ---
Date/Time of Note Date/Time of Note DATE: 01/09/17 TIME: 11:39 Assessment/Plan VTE Prophylaxis VTE Prophylaxis Intervention: LMWH Lines/Catheters [facility] Saline Lock Urinary Cath still in place: No Assessment/Plan Chief Complaint/Hosp Course Assessment/Plan: 81 F with pmhx asthma presents with 1 week progressive SOB, found to be in RVR. Suspect RVR provoked by acute on chronic asthma exacerbation v acute on chronic systolic HF 1. AFib with RVR: Appears to be in normal sinus rhythm now for the last few days , no signs of rapid rate -Continue bb (has been uptitrated), also on p.o. Lasix and hydrochlorothiazide -cont tele -discuss ATC with patient, but first we will get physical therapy eval apparently pt with asa allergy? 2. Cardiomyopathy: TTE showed decline in EF 35-40% along with mild global left ventricular systolic dysfunction, and mild to moderate MR regurg -Continue p.o. diuretics, beta-yeimi, HCTZ -Still awaiting cards eval 3. asthma: unclear what pt is on at home. - cont trial of PO and inhaled steroids, duonebs. 4. HTN: Stable -Continue BP meds as above Problems: Subjective 24 Hr Interval Summary Free Text/Dictation Patient has less shortness of breath symptoms. Exam/Review of Systems Vital Signs Vitals Vital Signs Date Time Temp Pulse Resp B/P Pulse Ox O2 Delivery O2 Flow Rate FiO2 01/09/17 11:17 97.9 94 20 100/59 94 01/09/17 07:50 Nasal Cannula 1.0 Intake and Output 01/08/17 01/08/17 01/09/17 15:00 23:00 07:00 Intake Total 850 ml 240 ml Balance 850 ml 240 ml Exam nad laying in bed, family at the bedside Pupils equal round reactive to light, extraocular muscles intact S1-S2 heard, no mrg lungs clear abd soft no rashes Results Result Diagram: 01/05/17 0903 Medications Medications Current Medications Hydrochlorothiazide (Hydrochlorothiazide) 25 mg DAILY PO Last administered on 09:16; Admin Dose 25 MG; Start 01/05/17 at 09:00 Montelukast Sodium (Singulair) 10 mg HS PO Last administered on 01/08/17 21:09 ; Admin Dose 10 MG; Start 01/04/17 at 21:00 Acetaminophen (Tylenol Tab) 650 mg Q6H PRN PO PAIN LEVEL 1-3 OR FEVER; Start at 12:30 Acetaminophen/ Hydrocodone Bitart ([place] (5/325)) 1 tab Q6H PRN PO PAIN LEVEL 4 -6 Last administered on 01/06/17 06:32; Admin Dose 1 TAB; Start 01/04/17 at 12: 30 Docusate Sodium (Colace) 100 mg Q12H PRN PO CONSTIPATION Last administered on 21:55; Admin Dose 100 MG; Start 01/04/17 at 12:30 Enoxaparin Sodium (Lovenox) 40 mg DAILY SC Last administered on 01/09/17 08:34 ; Admin Dose 40 MG; Start 01/05/17 at 09:00 Mometasone Furoate (Asmanex) 1 puff DAILY INH Last administered on 01/09/17 08 :31; Admin Dose 1 PUFF; Start 01/05/17 at 09:00 Prednisone (Prednisone) 40 mg DAILY PO Last administered on 01/09/17 08:31; Admin Dose 40 MG; Start 01/05/17 at 09:00; Stop 01/09/17 at 12:00 Metoprolol Tartrate (Lopressor) 75 mg BID PO Last administered on 01/08/17 21: 09; Admin Dose 75 MG; Start 01/06/17 at 21:00 Furosemide (Lasix) 40 mg DAILY@06 PO Last administered on 01/09/17 05:27; Admin Dose 40 MG; Start 01/07/17 at 06:00 Fluticasone Propionate (Flonase 0.05% Nasal) 1 spray BID NASAL Last administered on 01/09/17 08:31; Admin Dose 1 SPRAY; Start 01/07/17 at 21:00 Guaifenesin (Robitussin Liquid Cup) 100 mg Q4H PRN PO COUGH; Start 01/07/17 at 18:30 THEODORE DAILEY Jan 09, 2017 11:44
[2017-01-09 13:36] LABS: BASOPHILS % 0.2 % (0.0-2.0); EOSINOPHILS % 0.1 % (0.0-7.0); HEMATOCRIT 48.1 % (37.0-47.0); HEMOGLOBIN 15.8 g/dl (12.0-16.0); LYMPHOCYTES # 1.4 10^3/ul (0.8-2.9); LYMPHOCYTES % 15.7 % (15.0-51.0); MEAN CORPUSCULAR HEMOGLOBIN 28.4 pg (29.0-33.0); MEAN CORPUSCULAR HGB CONC 32.8 g/dl (32.0-37.0); MEAN CORPUSCULAR VOLUME 86.4 fl (82.0-101.0); MEAN PLATELET VOLUME 9.4 fl (7.4-10.4); MONOCYTE # 0.4 10^3/ul (0.3-0.9); MONOCYTES % 4.8 % (0.0-11.0); NEUTROPHILS % 78.3 % (39.0-77.0); PLATELET COUNT 463 10^3/UL (140-415); RED BLOOD COUNT 5.57 10^6/ul (4.20-5.40); RED CELL DISTRIBUTION WIDTH 13.2 % (11.5-14.5); WHITE BLOOD COUNT 8.6 10^3/ul (4.8-10.8)
[2017-01-09 14:03] LABS: CALCIUM 9.9 mg/dl (8.4-10.2); CREATININE 0.95 mg/dl (0.44-1.00); POTASSIUM 3.8 mmol/L (3.5-5.1)
[2017-01-09] MEDS: MONTELUKAST 10 MG TAB PO SCH (20:47)
[2017-01-10] VITALS (8 sets, daily range): BP systolic 98–156; BP diastolic 62–74; PULSE 74–94; RESP 18–19
[2017-01-10] MEDS: FUROSEMIDE 40 MG TAB PO SCH (05:49)
[2017-01-10 07:08] LABS: BASOPHILS % 0.2 % (0.0-2.0); EOSINOPHILS % 0.1 % (0.0-7.0); HEMATOCRIT 42.6 % (37.0-47.0); HEMOGLOBIN 14.1 g/dl (12.0-16.0); LYMPHOCYTES % 23.6 % (15.0-51.0); MEAN CORPUSCULAR HEMOGLOBIN 27.9 pg (29.0-33.0); MEAN CORPUSCULAR HGB CONC 33.1 g/dl (32.0-37.0); MEAN CORPUSCULAR VOLUME 84.4 fl (82.0-101.0); MEAN PLATELET VOLUME 9.2 fl (7.4-10.4); MONOCYTE # 0.6 10^3/ul (0.3-0.9); MONOCYTES % 7.3 % (0.0-11.0); NEUTROPHILS % 67.9 % (39.0-77.0); PLATELET COUNT 391 10^3/UL (140-415); RED BLOOD COUNT 5.05 10^6/ul (4.20-5.40); RED CELL DISTRIBUTION WIDTH 13.5 % (11.5-14.5); WHITE BLOOD COUNT 8.5 10^3/ul (4.8-10.8)
[2017-01-10 07:36] LABS: CALCIUM 9.4 mg/dl (8.4-10.2); CREATININE 0.87 mg/dl (0.44-1.00); POTASSIUM 3.3 mmol/L (3.5-5.1)
[2017-01-10] MEDS: ALBUTEROL/IPRATROPIUM (NEB) 3 ML AMP HHN SCH ×2 (08:34→13:00)
[2017-01-10] MEDS: HYDROCHLOROTHIAZIDE 25 MG TAB PO SCH (08:51)
[2017-01-10] MEDS: FLUTICASONE 0.05% 16 GM NAS SPRAY NASAL SCH (08:51)
[2017-01-10] MEDS: MOMETASONE 0.24 GM INHALER INH SCH (08:51)
[2017-01-10] MEDS: METOPROLOL 25 MG TAB PO SCH (08:52)
[2017-01-10] MEDS: ENOXAPARIN 40 MG/0.4 ML SYG SC SCH (08:53)
[2017-01-10 09:05] LABS: MAGNESIUM 1.8 mg/dl (1.7-2.5); PHOSPHORUS 4.5 mg/dl (2.5-4.9)
[2017-01-10] MEDS ORDERED: POTASSIUM CHLORIDE (SR) 20 MEQ TAB PO STA (10:55)
--- NOTE | 2017-01-10 10:58 | PDOCDIS ---
Discharge Instructions CONDITION Patient Condition: Stable HOME CARE INSTRUCTIONS: Special Diet: low chol low fat ACTIVITY: Activity Restrictions: Slowly Increase Activity FOLLOW UP/APPOINTMENTS Follow-up Plan Please take your medications as prescribed. Please follow-up with your regular doctor in the clinic in the next 1 week. THEODORE DAILEY Jan 10, 2017 10:58
[2017-01-10] MEDS ORDERED: FURO-110 PO (11:00)
[2017-01-10] MEDS ORDERED: METO-448 PO (11:00)
[2017-01-10] MEDS ORDERED: FLUT16SP17 NASAL (11:00)
--- NOTE | 2017-01-10 11:03 | DS ---
Date/Time of Note Date/Time of Note DATE: 01/10/17 TIME: 11:02 Discharge Summary Admission/Discharge Info Admit Date/Time Jan 04, 2017 at 10:40 Discharge Date/Time Discharge Diagnosis 1. AFib with RVR: Now rate controlled, and will be started on low-dose Eliquis. Chads 2 score is 2. 2. Cardiomyopathy: TTE showed decline in EF 35-40% along with mild global left ventricular systolic dysfunction, and mild to moderate MR regurg 3. asthma: 4. HTN: Patient Condition: Stable Hospital Course 81 F with pmhx asthma presents with 8 days of SOB prior to admission. Reports symptoms have been gradually worsening.+eye itching, no drainage. +scratchy throat. Occ cough productive of white phlegm. Sometimes has chest discomfort after coughing spells. No fevers,+chills. No LE swelling. States she has gone from sleeping on 2 pillows to 3 pillows. No LE swelling. Patient was admitted to telemetry floor, and found to have atrial fibrillation with RVR, which appeared to convertto normal sinus rhythm, but remained in A. fib but rate controlled. Patient shortness of breath symptoms improved, blood pressure medicines were titrated up including increase in her beta-yeimi and also started on Lasix p.o., as this was based on the echocardiogram results along with the clinical picture, and the echo showed the following: Conclusions 1. Normal left ventricular cavity size. Mild concentric left ventricular hypertrophy. Mild global left ventricular systolic dysfunction. Ejection fraction is visually estimated at 40 %. 2. Mitral valve leaflets appear mildly thickened. Mild mitral annular calcification. Mild to moderate mitral valve regurgitation. 3. No hemodynamically significant aortic stenosis by doppler. Aortic cusps appear mildly calcified. Mild aortic valve regurgitation. 4. Normal appearance of the tricuspid valve. Estimated peak PA systolic pressure 40 mmHg. There is mild tricuspid regurgitation. Patient was seen by physical therapy, able to ambulate with assistance with front wheel walker, tolerated p.o. diet. Heart rate remained rate controlled the last 2-3 days of admission. Vital signs and labs are also stable. Patient will be discharged home today in in improved condition. See below for full list of discharge medications. Home Meds Active Scripts Albuterol Sulfate* (Proair HFA*) 8.5 Gm Hfa.aer.ad, 2 PUFF INH Q4H Y for WHEEZING AND SOB, #1 INHALER 1 Refill Prov:HARINDER DAILEYP S. 01/10/17 Furosemide* (Lasix*) 20 Mg Tablet, 20 MG PO DAILY, #30 TAB 1 Refill Prov:THEODORE DAILEY S. 01/10/17 Fluticasone Propionate* (Fluticasone Propionate* Nasal) 50 Mcg/[place] - 16 Gm [place].susp, 1 SPRAY NASAL BID, #1 1 Refill Prov:HARINDER DAILEYP S. 01/10/17 Metoprolol Tartrate* (Lopressor*) 25 Mg Tab, 75 MG PO BID, #60 TAB 2 Refills Prov:HARINDER DAILEYP S. 01/10/17 Montelukast Sodium* (Singulair*) 10 Mg Tab, 10 MG PO HS for 30 Days Prov:MILTON COTTO NP 07/22/14 Reported Medications Amlodipine Besylate* (Amlodipine Besylate*) 10 Mg Tablet, 10 MG PO DAILY, #30 TAB 01/04/17 Docusate Sodium* (Doc-Q-Lace*) 100 Mg Capsule, 100 MG PO BID Y for CONSTIPATION , CAP 08/30/16 Benazepril Hcl* (Benazepril Hcl*) 40 Mg Tablet, 40 MG PO DAILY, #30 TAB 08/30/16 Hydrochlorothiazide* (Hydrochlorothiazide*) 25 Mg Tab, 25 MG PO DAILY, TAB 07/09/14 Discontinued Reported Medications Metoprolol Tartrate* (Lopressor*) 25 Mg Tab, 25 MG PO BID, #60 TAB 08/30/16 Discontinued Scripts Prednisone* (Prednisone*) 20 Mg Tab, 20 MG PO BID for 3 Days, TAB Prov:BOWEN BULLARD MD 09/02/16 Levofloxacin* (Levaquin*) 500 Mg Tablet, 500 MG PO DAILY for 5 Days, TAB Prov:BOWEN BULLARD MD 09/02/16 Albuterol Sulfate* (Ventolin HFA*) 18 Gm Hfa.aer.ad, 2 PUFF INHALATION Q4H, #1 INHALER Prov:LEXIS SANDERSON 08/29/16 Amlodipine Besylate* (Norvasc*) 10 Mg Tablet, 10 MG PO DAILY, #30 TAB Prov:LEXIS MOORE MD 8/6/16 Primary Care Provider Not On Staff Doctor Time spent on discharge: > 30 minutes Pending Labs Laboratory Tests Test 01/09/17 13:11 01/10/17 06:36 01/10/17 06:39 White Blood Count 8.610^3/ul (4.8-10.8) 8.510^3/ul (4.8-10.8) Red Blood Count 5.5710^6/ul (4.20-5.40) 5.0510^6/ul (4.20-5.40) Hemoglobin 15.8g/dl (12.0-16.0) 14.1g/dl (12.0-16.0) Hematocrit 48.1% (37.0-47.0) 42.6% (37.0-47.0) Mean Corpuscular Volume 86.4fl (82.0-101.0) 84.4fl (82.0-101.0) Mean Corpuscular Hemoglobin 28.4pg (29.0-33.0) 27.9pg (29.0-33.0) Mean Corpuscular Hemoglobin Concent 32.8g/dl (32.0-37.0) 33.1g/dl (32.0-37.0) Red Cell Distribution Width 13.2% (11.5-14.5) 13.5% (11.5-14.5) Platelet Count 69556^3/UL (140-415) 39023^3/UL (140-415) Mean Platelet Volume 9.4fl (7.4-10.4) 9.2fl (7.4-10.4) Neutrophils % 78.3% (39.0-77.0) 67.9% (39.0-77.0) Lymphocytes % 15.7% (15.0-51.0) 23.6% (15.0-51.0) Monocytes % 4.8% (0.0-11.0) 7.3% (0.0-11.0) Eosinophils % 0.1% (0.0-7.0) 0.1% (0.0-7.0) Basophils % 0.2% (0.0-2.0) 0.2% (0.0-2.0) Nucleated Red Blood Cells % 0.0/100WBC (0.0-0.0) 0.0/100WBC (0.0-0.0) Neutrophils # (Manual) 6.710^3/ul (1.7-7.5) 5.710^3/ul (1.7-7.5) Lymphocytes # 1.410^3/ul (0.8-2.9) 2.010^3/ul (0.8-2.9) Monocytes # 0.410^3/ul (0.3-0.9) 0.610^3/ul (0.3-0.9) Eosinophils # 0.010^3/ul (0.0-0.5) 0.010^3/ul (0.0-0.5) Basophils # 0.010^3/ul (0.0-0.1) 0.010^3/ul (0.0-0.1) Nucleated Red Blood Cells # 0.010^3/ul (0.0-0.0) 0.010^3/ul (0.0-0.0) Sodium Level 139mmol/L (135-144) 139mmol/L (135-144) Potassium Level 3.8mmol/L (3.5-5.1) 3.3mmol/L (3.5-5.1) Chloride Level 87mmol/L (97-110) 91mmol/L (97-110) Carbon Dioxide Level 34mmol/L (21-31) 32mmol/L (21-31) Anion Gap 22 (8-16) 19 (8-16) Blood Urea Nitrogen 37mg/dl (7-20) 37mg/dl (7-20) Creatinine 0.95mg/dl (0.44-1.00) 0.87mg/dl (0.44-1.00) Glucose Level 156mg/dl (70-220) 87mg/dl (70-220) Calcium Level 9.9mg/dl (8.4-10.2) 9.4mg/dl (8.4-10.2) Phosphorus Level 4.5mg/dl (2.5-4.9) Magnesium Level 1.8mg/dl (1.7-2.5) THEODORE DAILEY Jan 10, 2017 11:03
[2017-01-10] MEDS ORDERED: ALBU8.5H3 INH (11:04)
[2017-01-10] MEDS ORDERED: APIX2.5T PO (11:14)
[2017-01-10] MEDS ORDERED: APIXABAN 5 MG TABLET PO SCH (11:30)
== END 2017-01-10 14:00 | disposition home or self-care (01) | DRG 308 ==
LOC: E/R 08:40 → TEL 10:40
PROVIDERS: ADMIT Internal Medicine; ATTEND Internal Medicine
DX: I48.91 Unspecified atrial fibrillation (principal); I11.0 Hypertensive heart disease with heart failure; I50.23 Acute on chronic systolic (congestive) heart failure; I42.9 Cardiomyopathy, unspecified; J45.901 Unspecified asthma with (acute) exacerbation; I34.0 Nonrheumatic mitral (valve) insufficiency; Z88.6 Allergy status to analgesic agent
CPT/HCPCS: 36415; 71010; 80048; 82550; 82553; 83735; 83880; 84100; 84443; 84484; 85025; 85610; 85730; 93005; 93306; 94640; 94664; 97163; J1650; J1940; J7040; J7512

== ENCOUNTER 2017-06-09 10:40 | Emergency (ER) | END 2017-06-09 17:57 | disposition home or self-care (01) ==

== ENCOUNTER 2017-11-09 01:23 | Inpatient (IN) | END 2017-11-11 14:10 | disposition home or self-care (01) | DRG 391 ==

== ENCOUNTER 2017-11-16 13:13 | Inpatient (IN) | END 2017-11-20 17:14 | disposition home or self-care (01) | DRG 391 ==

== ENCOUNTER 2017-12-14 20:45 | Inpatient (IN) | END 2017-12-17 13:31 | disposition home or self-care (01) | DRG 392 ==

== ENCOUNTER 2018-02-06 07:42 | Observation (INO) | END 2018-02-09 15:00 | disposition home or self-care (01) ==